=== PATIENT | male | born 1940 | race Caucasian/White ===

== ENCOUNTER 2017-12-22 07:55 | Emergency (ER) | payer MEDICARE, MEDICAID ==
[2017-12-22 08:00] VITALS: BP 149/72
--- NOTE | 2017-12-22 08:30 | ER Document Report ---
ED General - General Chief Complaint: Urinary Problem Stated Complaint: BLOOD IN URINE Time Seen by Provider: 12/22/17 08:29 Mode of Arrival: Ambulatory Information source: Patient TRAVEL OUTSIDE OF THE [place] IN LAST 30 DAYS: No - HPI Notes: 77-year-old male with a history of bladder cancer and who is in remission 2 years ago presents to the ED with for complaints of hematuria that he noticed this morning. Denies any other complaints. Patient was cared for by Dr. Carrasquillo in [place] with a urologist. He states he had debulking done, he had multiple biopsies and the last one showing is cancer free, patient has a cystoscopy performed every 3 months for evaluation of bladder cancer. Patient did miss his appointment back in October, has an appointment in mid December for another cystoscopy, his last one was July 2017 which was normal per patient. Denies fevers, chills, chest pain,palpitations, shortness of breath, dyspnea, nausea, vomiting, diarrhea, abdominal pain, hematuria,blurred vision, double vision, loss of vision, speech changes, LH, dizziness, syncope, headaches, wheezing, ST, URI, neck pain, weakness, bowel or bladder dysfunction, saddle anesthesia, numbness or tingling in bilateral upper or lower extremities equally , muscle paralysis, weakness in bilateral upper or lower extremities equally or rash. Denies IV drug use. - Related Data Allergies/Adverse Reactions: No Known Allergies Allergy (Verified 12/22/17 07:55) Past Medical History - General Information source: Patient - Social History Smoking Status: Never Smoker Chew tobacco use (# tins/day): No Frequency of alcohol use: None Drug Abuse: None Family History: Reviewed & Not Pertinent, Malignancy Patient has suicidal ideation: No Patient has homicidal ideation: No - Past Medical History Cardiac Medical History: Denies: Hx Coronary Artery Disease, Hx Heart Attack, Hx Hypertension Pulmonary Medical History: Denies: Hx Asthma, Hx Bronchitis, Hx COPD, Hx Pneumonia Neurological Medical History: Denies: Hx Cerebrovascular Accident, Hx Seizures Renal/ Medical History: Denies: Hx Peritoneal Dialysis Musculoskeletal Medical History: Reports Hx Arthritis - shoulder, low back, Reports Hx Musculoskeletal Deformity, Reports Hx Musculoskeletal Trauma Skin Medical History: Reports Hx Psoriasis Psychiatric Medical History: Reports: Hx Depression Past Surgical History: Reports: Hx Cholecystectomy - Immunizations Immunizations up to date: No Hx Diphtheria, Pertussis, Tetanus Vaccination: Yes Review of Systems - Review of Systems Constitutional: No symptoms reported EENT: No symptoms reported Cardiovascular: No symptoms reported Respiratory: No symptoms reported Gastrointestinal: No symptoms reported Genitourinary: See HPI Male Genitourinary: No symptoms reported Musculoskeletal: No symptoms reported Skin: No symptoms reported Hematologic/Lymphatic: No symptoms reported Neurological/Psychological: No symptoms reported Physical Exam - Vital signs Vitals: Temp Pulse Resp BP Pulse Ox 98.5 F 63 18 149/72 H 98 12/22/17 07:59 12/22/17 07:59 12/22/17 07:59 12/22/17 07:59 12/22/17 07:59 - Notes Notes: PHYSICAL EXAMINATION: GENERAL: Well-appearing, well-nourished and in no acute distress. HEAD: Atraumatic, normocephalic. EYES: Pupils equal round and reactive to light, extraocular movements intact, sclera anicteric, conjunctiva are normal. ENT: Nares patent, oropharynx clear without exudates. Moist mucous membranes. NECK: Normal range of motion, supple without lymphadenopathy LUNGS: Breath sounds clear to auscultation bilaterally and equal. No wheezes rales or rhonchi. HEART: Regular rate and rhythm without murmurs ABDOMEN: Soft, nontender, nondistended abdomen. No guarding, no rebound. No masses appreciated. Musculoskeletal: Normal range of motion, no pitting or edema. No cyanosis. NEUROLOGICAL: Cranial nerves grossly intact. Normal speech, normal gait. Normal sensory, motor exams PSYCH: Normal mood, normal affect. SKIN: Warm, Dry, normal turgor, no rashes or lesions noted. Course - Re-evaluation Re-evalutation: 12/22/17 11:25 77-year-old male who is afebrile, vitals stable and in no distress presents for evaluation of hematuria. Urinalysis did show hematuria, no leukocytes or nitrates. Retroperitoneal limited ultrasound of the bladder was negative for any masses, left and right kidney without any solid or suspicious masses, no hydronephrosis or calcifications, normal size normal. Reevaluation, patient urinating bedside urinal, urine appeared to be yellow, no sergey hematuria. Patient remained afebrile, vitals stable no distress. After performing a Medical Screening Examination, I estimate there is LOW risk for ACUTE APPENDICITIS, BOWEL OBSTRUCTION, ACUTE CHOLECYSTITIS, PERFORATED DIVERTICULITIS , INCARCERATED HERNIA, PANCREATITIS, TESTICULAR TORSION or PERFORATED ULCER, thus I consider the discharge disposition reasonable. Also, there is no evidence or peritonitis, sepsis, or toxicity. I have reevaluated this patient multiple times and no significant life threatening changes are noted. The patient and I have discussed the diagnosis and risks, and we agree with discharging home with close follow-up with the understanding that symptoms and presentations can change. Discussed with patient to follow-up with Dr. Carrasquillo , urologist in [place] who manages bladder cancer for a cystoscopy sooner than mid December. We also discussed returning to the Emergency Department immediately if new or worsening symptoms occur. We have discussed the symptoms which are most concerning (e.g., bloody stool, fever, nausea vomiting diarrhea changing or worsening pain, intractable vomiting - standard verbal up date) that necessitate immediate return. Patient agree with plan of care, verbalized understanding of plan and was discharged home. - Vital Signs Vital signs: Temp Pulse Resp BP Pulse Ox 98.5 F 63 18 149/72 H 98 12/22/17 07:59 12/22/17 07:59 12/22/17 07:59 12/22/17 07:59 12/22/17 07:59 - Laboratory Laboratory results interpreted by me: 12/22/17 09:42 Urine Protein 30 H Urine Blood LARGE H Discharge - Discharge Clinical Impression: Hematuria, Hematuria, resolved, History of bladder cancer Condition: Stable Disposition: HOME, SELF-CARE Instructions: Hematuria ([facility]) Additional Instructions: Reevaluation of hematuria although it has resolved. Your ultrasound was negative for any stones or masses. He likely may have passed a stone since her hematuria has resolved. Urinalysis did not show a UTI. Return to the ED if you experience any fevers chills, abdominal pain, worsening hematuria, coffee- ground emesis, melena, etc. Return immediately for any new or worsening symptoms. Follow up with primary care provider, call tomorrow to make followup appointment. Referrals: AMAYA CHAVEZ MD [Primary Care Provider] - Follow up as needed JAMAAL CARRASQUILLO MD [NO LOCAL MD] - Follow up in 3-5 days
[2017-12-22 10:11] LABS: APPEARANCE,URINE CLOUDY; BILIRUBIN,URINE NEGATIVE (NEGATIVE); GLUCOSE, URINE NEGATIVE (NEGATIVE); KETONES,URINE NEGATIVE (NEGATIVE); LEUKOCYTE ESTERASE,URINE NEGATIVE (NEGATIVE); NITRITE,URINE NEGATIVE (NEGATIVE); PROTEIN,URINE 30 mg/dL (NEGATIVE); URINE SPECIFIC GRAVITY 1.017; UROBILINOGEN,URINE NEGATIVE mg/dL (<2.0)
[2017-12-22 10:12] LABS: COLOR,URINE PINK
--- NOTE | 2017-12-22 10:50 | RADIOLOGY REPORT (SQ) ---
EXAM DESCRIPTION: U/S RETROPERITON LTD COMPLETED DATE/TIME: 12/22/2017 10:35 am REASON FOR STUDY: hematuria with hx of bladder ca, sudden onset COMPARISON: None. TECHNIQUE: Dynamic and static grayscale images acquired of the kidneys and bladder and recorded on P ACS. Additional selected color Doppler and spectral images recorded. LIMITATIONS: None. FINDINGS: RIGHT KIDNEY: Normal size. Normal echogenicity. No solid or suspicious masses. No h ydronephrosis. No calcifications. LEFT KIDNEY: Normal size. Normal echogenicity. No solid or suspicious masses. No hydronephrosi s. No calcifications. BLADDER: No masses. OTHER FINDINGS: No other significant finding. IMPRESSION: NORMAL RENAL AND BLADDER ULTRASOUND. TECHNICAL DOCUMENTATION: JOB ID: [id number] [employer]- All Rights Reserved Reading location - IP/workstation name: [email or web address]
== END 2017-12-22 11:49 | disposition home or self-care (01) ==
LOC: ER 07:55
DX: R31.9 Hematuria, unspecified (principal); Z85.51 Personal history of malignant neoplasm of bladder; Z90.49 Acquired absence of other specified parts of digestive tract
CPT/HCPCS: 76775; 81001; 87086; 99284

== ENCOUNTER 2018-07-21 05:16 | Emergency (ER) | payer MEDICARE, MEDICAID ==
[2018-07-21] MEDS ORDERED: LIDOCAINE 2% URO-JET 5 ML KIT MM ONE (05:39)
[2018-07-21 06:43] LABS: APPEARANCE,URINE TURBID; BILIRUBIN,URINE NEGATIVE (NEGATIVE); COLOR,URINE RED; GLUCOSE, URINE 50 mg/dL (NEGATIVE); KETONES,URINE NEGATIVE (NEGATIVE); LEUKOCYTE ESTERASE,URINE NEGATIVE (NEGATIVE); NITRITE,URINE NEGATIVE (NEGATIVE); PROTEIN,URINE 100 mg/dL (NEGATIVE); URINE SPECIFIC GRAVITY 1.023; UROBILINOGEN,URINE NEGATIVE mg/dL (<2.0)
--- NOTE | 2018-07-21 07:05 | ER Document Report ---
ED General - General Chief Complaint: Urinary Retention Stated Complaint: URINATION ISSUES Time Seen by Provider: 07/21/18 06:12 Primary Care Provider: AMAYA CHAVEZ MD [Primary Care Provider] - Follow up as needed TRAVEL OUTSIDE OF THE U.S. IN LAST 30 DAYS: No - HPI Patient complains to provider of: Urinary retention Notes: Patient coming in for evaluation of urinary retention. Patient had a tumor removed from his bladder by Dr. Chun at [facility] Thursday prior to his arrival here. Patient states tolerated surgery well. Patient states approximately 2:00 last night woke up suprapubic abdominal pain unable to urinate. Patient denies any blood thinning medications. Patient denies any fevers chills nausea vomiting diarrhea. Patient upon my evaluation is Jerry had a Thao catheter placed in with bloody urine returned approximately 800 cc at this time. Patient states he is feeling much better and is no longer in any distress. Denies any fevers. Patient states that he has had multiple tumors removed from his bladder this is the first time this caused urinary retention. - Related Data Allergies/Adverse Reactions: No Known Allergies Allergy (Verified 12/22/17 07:55) Past Medical History - Social History Smoking Status: Unknown if Ever Smoked Chew tobacco use (# tins/day): No Drug Abuse: None Family History: Reviewed & Not Pertinent, Malignancy Patient has suicidal ideation: No Patient has homicidal ideation: No - Past Medical History Cardiac Medical History: Denies: Hx Coronary Artery Disease, Hx Heart Attack, Hx Hypertension Pulmonary Medical History: Denies: Hx Asthma, Hx Bronchitis, Hx COPD, Hx Pneumonia Neurological Medical History: Denies: Hx Cerebrovascular Accident, Hx Seizures Renal/ Medical History: Denies: Hx Peritoneal Dialysis Musculoskeletal Medical History: Reports Hx Arthritis - shoulder, low back, Reports Hx Musculoskeletal Deformity, Reports Hx Musculoskeletal Trauma Skin Medical History: Reports Hx Psoriasis Psychiatric Medical History: Reports: Hx Depression Past Surgical History: Reports: Hx Cholecystectomy - Immunizations Immunizations up to date: No Hx Diphtheria, Pertussis, Tetanus Vaccination: Yes Review of Systems - Review of Systems Constitutional: No symptoms reported EENT: No symptoms reported Cardiovascular: No symptoms reported Respiratory: No symptoms reported Gastrointestinal: No symptoms reported Genitourinary: Retention Male Genitourinary: No symptoms reported Musculoskeletal: No symptoms reported Skin: No symptoms reported Hematologic/Lymphatic: No symptoms reported Neurological/Psychological: No symptoms reported -: Yes All other systems reviewed and negative Physical Exam - Vital signs Vitals: Pulse Resp Pulse Ox 104 H 28 H 100 07/21/18 05:16 07/21/18 05:16 07/21/18 05:16 Interpretation: Normal - General General appearance: Appears well, Alert - HEENT Head: Normocephalic, Atraumatic Eyes: Normal Pupils: PERRL - Respiratory Respiratory status: No respiratory distress Chest status: Nontender Breath sounds: Normal Chest palpation: Normal - Cardiovascular Rhythm: Regular Heart sounds: Normal auscultation Murmur: No - Abdominal Inspection: Normal Distension: No distension Bowel sounds: Normal Tenderness: Nontender Organomegaly: No organomegaly - Back Back: Normal, Nontender - Extremities General upper extremity: Normal inspection, Nontender, Normal color, Normal ROM, Normal temperature General lower extremity: Normal inspection, Nontender, Normal color, Normal ROM, Normal temperature, Normal weight bearing. No: Freedom's sign - Neurological Neuro grossly intact: Yes Cognition: Normal Orientation: AAOx4 Blair Coma Scale Eye Opening: Spontaneous Blair Coma Scale Verbal: Oriented [place] Coma Scale Motor: Obeys Commands [place] Coma Scale Total: 15 Speech: Normal Motor strength normal: LUE, RUE, LLE, RLE Sensory: Normal - Psychological Associated symptoms: Normal affect, Normal mood - Skin Skin Temperature: Warm Skin Moisture: Dry Skin Color: Normal Course - Re-evaluation Re-evalutation: 07/21/18 07:05 We will contact the patient's urologist 07/21/18 07:[address] Hui urology on-call at [facility]. Agrees at this time with Thao catheter changes and to have her to a leg bag because the bacteria seen in the urinalysis and recent instrumentation of the bladder we will start the patient on Keflex. Patient's urology clinic for follow-up with him later on for removal of the Thao catheter. Patient will be discharged home - Vital Signs Vital signs: Temp Pulse Resp BP Pulse Ox 104 H 28 H 100 07/21/18 05:16 07/21/18 05:16 07/21/18 05:16 - Laboratory Laboratory results interpreted by me: 07/21/18 06:10 Urine Protein 100 H Urine Glucose (UA) 50 H Urine Blood MODERATE H Discharge - Discharge Clinical Impression: Urinary retention Condition: Good Disposition: HOME, SELF-CARE Instructions: Thao Catheter Care ([facility]), Urinary Retention ([facility]) Additional Instructions: We will start you on antibiotic today called Keflex because of bacteria that we see in your urinalysis. Please follow-up with the urology clinic. They will schedule a time for you to come to your office our clinic to have the catheter removed. Return to ER if you have any other complications. Prescriptions: Cephalexin Monohydrate [Keflex 500 mg Capsule] 500 mg PO Q6H 10 Days capsule Referrals: AMAYA CHAVEZ MD [Primary Care Provider] - Follow up as needed
[2018-07-21] MEDS ORDERED: CEPHALEXIN 500 MG CAPSULE PO ONE (07:33)
[2018-07-21 08:02] VITALS: BP 123/62
== END 2018-07-21 08:02 | disposition home or self-care (01) ==
LOC: ER 05:16
DX: R33.9 Retention of urine, unspecified (principal); R82.71 Bacteriuria; Z98.890 Other specified postprocedural states
CPT/HCPCS: 99283; 51702; 81001; C1758; A9270 ×2; J3490

== ENCOUNTER 2018-07-21 11:03 | Emergency (ER) | payer MEDICARE, MEDICAID ==
--- NOTE | 2018-07-21 12:11 | ER Document Report ---
ED General - General Chief Complaint: Problem with Urinary Catheter Stated Complaint: CATHETER NOT DRAINING Time Seen by Provider: 07/21/18 11:35 Primary Care Provider: AMAYA CHAVEZ MD [Primary Care Provider] - Follow up as needed Notes: 77-year-old male seen here this morning for obstruction of his Thao catheter re-presents in acute distress for re-evaluation of urinary retention. Patient had a tumor removed from his bladder by Dr. Chun at [facility] Thursday prior to his arrival here. Patient states approximately 2:00 last night woke up suprapubic abdominal pain unable to urinate. Patient denies any anti coagulation. Patient denies any fevers, chills, nausea, vomiting, diarrhea. Patient seen this morning by Dr. Berkowitz and Thao was flushed. TRAVEL OUTSIDE OF THE [place]. IN LAST 30 DAYS: No - Related Data Allergies/Adverse Reactions: No Known Allergies Allergy (Verified 07/21/18 11:03) Past Medical History - Social History Smoking Status: Former Smoker Family History: Reviewed & Not Pertinent, Malignancy Patient has suicidal ideation: No Patient has homicidal ideation: No - Past Medical History Cardiac Medical History: Denies: Hx Coronary Artery Disease, Hx Heart Attack, Hx Hypertension Pulmonary Medical History: Denies: Hx Asthma, Hx Bronchitis, Hx COPD, Hx Pneumonia Neurological Medical History: Denies: Hx Cerebrovascular Accident, Hx Seizures Renal/ Medical History: Denies: Hx Peritoneal Dialysis Musculoskeletal Medical History: Reports Hx Arthritis - shoulder, low back, Reports Hx Musculoskeletal Deformity, Reports Hx Musculoskeletal Trauma Skin Medical History: Reports Hx Psoriasis Psychiatric Medical History: Reports: Hx Depression Past Surgical History: Reports: Hx Cholecystectomy - Immunizations Immunizations up to date: No Hx Diphtheria, Pertussis, Tetanus Vaccination: Yes Review of Systems - Review of Systems Constitutional: See HPI EENT: No symptoms reported Cardiovascular: No symptoms reported Respiratory: See HPI Gastrointestinal: See HPI Genitourinary: See HPI Male Genitourinary: No symptoms reported Musculoskeletal: No symptoms reported Skin: No symptoms reported Hematologic/Lymphatic: No symptoms reported Neurological/Psychological: No symptoms reported Physical Exam - Vital signs Vitals: Temp Pulse Resp BP Pulse Ox 98.6 F 102 H 20 168/90 H 100 07/21/18 11:07 07/21/18 11:07 07/21/18 11:07 07/21/18 11:07 07/21/18 11:07 - Notes Notes: PHYSICAL EXAMINATION: Reviewed vital signs and charting by RN GENERAL: Alert, interacts well. Acute distress. HEAD: Normocephalic, atraumatic. EYES: Pupils equal, round. Extraocular movements intact. ENT: Oral mucosa moist ABDOMEN: Soft, suprapubic tenderness to palpation. Non-distended. EXTREMITIES: Moves all 4 extremities spontaneously. No edema, No cyanosis. NEUROLOGICAL: Alert and oriented. Normal speech. PSYCH: Normal affect, anxious, normal mood. SKIN: Warm, dry, normal turgor. No rashes or lesions noted. Course - Re-evaluation Re-evalutation: 07/21/18 12:07 Patient 3presents for acute urinary retention secondary to clot at the port entering the Thao catheter bag. Nursing care performed to correct Thao malfunction and education was given to patient on how to manage his Thao bag. No medical interventions were performed. Do not feel the patient should be billed a second visit for this. - Vital Signs Vital signs: Temp Pulse Resp BP Pulse Ox 98.6 F 102 H 20 168/90 H 100 07/21/18 11:07 07/21/18 11:07 07/21/18 11:07 07/21/18 11:07 07/21/18 11:07 Discharge - Discharge Clinical Impression: Urinary retention Condition: Good Disposition: HOME, SELF-CARE Additional Instructions: You are seen again in the emergency department for urinary retention. Nursing has given you education and instructions how to manage her Thao in case this happens again. Please attempt these maneuvers prior to coming into the emergency department as it could prevent pain and distress. If you do perform these maneuvers and you are having problems with urinary retention, continue to have blood in your urine in the next 2-3 days, or you have any other concerning symptoms please immediately return to the emergency department. If you have any fevers please return to the emergency department. Referrals: AMAYA CHAVEZ MD [Primary Care Provider] - Follow up as needed
[2018-07-21 12:57] VITALS: BP 159/76
== END 2018-07-21 13:14 | disposition home or self-care (01) ==
LOC: ER 11:03
DX: T83.018A Breakdown (mechanical) of other urinary catheter, initial encounter (principal); R33.8 Other retention of urine; Y84.6 Urinary catheterization as the cause of abnormal reaction of the patient, or of later complication, without mention of misadventure at the time of the procedure; Z98.890 Other specified postprocedural states; Z87.891 Personal history of nicotine dependence
CPT/HCPCS: 99283

== ENCOUNTER 2018-07-22 05:02 | Emergency (ER) | payer MEDICARE, MEDICAID ==
[2018-07-22 06:18] LABS: HEMOGLOBIN 13.2 g/dL (13.5-17.0); MEAN CORPUSCULAR HEMOGLOBIN 30.6 pg (27.0-33.4); MEAN CORPUSCULAR HGB CONC 34.7 g/dL (32.0-36.0); MEAN CORPUSCULAR VOLUME 88 fl (80-97); PLATELET COUNT 104 10^3/uL (150-450); RED CELL DISTRIBUTION WIDTH 13.5 % (11.5-14.0); WHITE BLOOD COUNT 5.9 10^3/uL (4.0-10.5)
[2018-07-22 06:51] LABS: ABSOLUTE LYMPHOCYTES# (MANUAL) 0.2 10^3/uL (0.5-4.7); ABSOLUTE MONOCYTES # (MANUAL) 0.1 10^3/uL (0.1-1.4); ABSOLUTE NEUTROPHILS# (MANUAL) 5.6 10^3/uL (1.7-8.2); BAND NEUTROPHILS % (MANUAL) 3 % (3-5); BASOPHILS % (MANUAL) 0 % (0-2); EOSINOPHILS % (MANUAL) 0 % (0-6); LYMPHOCYTES % (MANUAL) 3 % (13-45); MONOCYTES % (MANUAL) 2 % (3-13); SEGMENTED NEUTROPHILS % (MAN) 92 % (42-78); TOTAL CELLS COUNTED 100
[2018-07-22 06:52] LABS: PLATELET COMMENT ADEQUATE; ROULEAUX 1+
[2018-07-22 06:53] LABS: HYPOCHROMASIA 1+
[2018-07-22 07:54] LABS: ANION GAP 10 (5-19); BLOOD UREA NITROGEN 14 mg/dL (7-20); CARBON DIOXIDE 24 mmol/L (22-30); CHLORIDE 105 mmol/L (98-107); GLUCOSE 122 mg/dL (75-110); POTASSIUM 3.6 mmol/L (3.6-5.0); SODIUM 139.4 mmol/L (137-145)
--- NOTE | 2018-07-22 08:27 | ER Document Report ---
ED General - General Chief Complaint: Problem with Urinary Catheter Stated Complaint: URINARY PROBLEMS Time Seen by Provider: 07/22/18 05:41 Primary Care Provider: AMAYA CHAVEZ MD [Primary Care Provider] - Follow up as needed TRAVEL OUTSIDE OF THE [place] IN LAST 30 DAYS: No - HPI Patient complains to provider of: Thao catheter pain Notes: Patient coming in for pain due to Thao catheter. Patient was seen yesterday by myself urinary retention Thao catheter was placed in patient is to follow-up with his urologist. Patient came in prior to my shift starting complaining of Thao catheter playing the Thao catheter was removed upon my evaluation patient states he has already voided currently is pain-free. Patient denies any fever chills nausea vomiting diarrhea. Basic chemistry panel have been ordered by the nighttime doctor to check for any signs of renal failure due to obstructive uropathy - Related Data Allergies/Adverse Reactions: No Known Allergies Allergy (Verified 07/21/18 11:03) Past Medical History - Social History Smoking Status: Unknown if Ever Smoked Family History: Reviewed & Not Pertinent, Malignancy Patient has suicidal ideation: No Patient has homicidal ideation: No - Past Medical History Cardiac Medical History: Denies: Hx Coronary Artery Disease, Hx Heart Attack, Hx Hypertension Pulmonary Medical History: Denies: Hx Asthma, Hx Bronchitis, Hx COPD, Hx Pneumonia Neurological Medical History: Denies: Hx Cerebrovascular Accident, Hx Seizures Renal/ Medical History: Denies: Hx Peritoneal Dialysis Musculoskeletal Medical History: Reports Hx Arthritis - shoulder, low back, Reports Hx Musculoskeletal Deformity, Reports Hx Musculoskeletal Trauma Skin Medical History: Reports Hx Psoriasis Psychiatric Medical History: Reports: Hx Depression Past Surgical History: Reports: Hx Cholecystectomy - Immunizations Immunizations up to date: No Hx Diphtheria, Pertussis, Tetanus Vaccination: Yes Review of Systems - Review of Systems Constitutional: Other - Thao catheter. EENT: No symptoms reported Cardiovascular: No symptoms reported Respiratory: No symptoms reported Gastrointestinal: No symptoms reported Genitourinary: No symptoms reported Male Genitourinary: No symptoms reported Musculoskeletal: No symptoms reported Skin: No symptoms reported Hematologic/Lymphatic: No symptoms reported Neurological/Psychological: No symptoms reported -: Yes All other systems reviewed and negative Physical Exam - Vital signs Vitals: Pulse Resp BP Pulse Ox 88 26 H 183/80 H 96 07/22/18 05:07 07/22/18 05:07 07/22/18 05:07 07/22/18 05:07 Interpretation: Normal - General General appearance: Appears well, Alert - HEENT Head: Normocephalic, Atraumatic Eyes: Normal Pupils: PERRL - Respiratory Respiratory status: No respiratory distress Chest status: Nontender Breath sounds: Normal Chest palpation: Normal - Cardiovascular Rhythm: Regular Heart sounds: Normal auscultation Murmur: No - Abdominal Inspection: Normal Distension: No distension Bowel sounds: Normal Tenderness: Nontender Organomegaly: No organomegaly - Back Back: Normal, Nontender - Extremities General upper extremity: Normal inspection, Nontender, Normal color, Normal ROM, Normal temperature General lower extremity: Normal inspection, Nontender, Normal color, Normal ROM, Normal temperature, Normal weight bearing. No: Freedom's sign - Neurological Neuro grossly intact: Yes Cognition: Normal Orientation: AAOx4 [place] Coma Scale Eye Opening: Spontaneous Blair Coma Scale Verbal: Oriented Blair Coma Scale Motor: Obeys Commands [place] Coma Scale Total: 15 Speech: Normal Motor strength normal: LUE, RUE, LLE, RLE Sensory: Normal - Psychological Associated symptoms: Normal affect, Normal mood - Skin Skin Temperature: Warm Skin Moisture: Dry Skin Color: Normal Course - Re-evaluation Re-evalutation: 07/22/18 13:24 Patient continue to void here without any issues. Patient will be discharged h ome follow-up primary care physician laboratory studies not show any signs of renal failure. - Vital Signs Vital signs: Temp Pulse Resp BP Pulse Ox 98.1 F 78 17 156/77 H 100 07/22/18 06:00 07/22/18 08:49 07/22/18 08:49 07/22/18 08:49 07/22/18 08:49 - Laboratory Result Diagrams: 07/22/18 06:00 07/22/18 07:18 Laboratory results interpreted by me: 07/22/18 07/22/18 06:00 07:18 RBC 4.30 L Hgb 13.2 L Plt Count 104 L Seg Neuts % (Manual) 92 H Lymphocytes % (Manual) 3 L Monocytes % (Manual) 2 L Abs Lymphs (Manual) 0.2 L Glucose 122 H Discharge - Discharge Clinical Impression: History of recent bladder surgery, Encounter for Thao catheter removal Condition: Good Disposition: HOME, SELF-CARE Additional Instructions: Laboratory studies did not show any acute pathology highly recommend drinking plenty of fluids stay well-hydrated follow-up with your urologist and primary c are physician as needed. Referrals: AMAYA CHAVEZ MD [Primary Care Provider] - Follow up as needed
[2018-07-22 08:52] VITALS: BP 156/77
== END 2018-07-22 08:49 | disposition home or self-care (01) ==
LOC: ER 05:02
DX: Z46.89 Encounter for fitting and adjustment of other specified devices (principal); T83.9XXA Unspecified complication of genitourinary prosthetic device, implant and graft, initial encounter; X58.XXXA Exposure to other specified factors, initial encounter
CPT/HCPCS: 36415; 80048; 85025; 99283

== ENCOUNTER → 2018-11-17 | Outpatient (CLI) | payer MEDICARE, MEDICAID ==
--- NOTE | 2018-11-17 10:52 | RADIOLOGY REPORT (SQ) ---
EXAM DESCRIPTION: U/S ABDOMEN LIMITED W/O DOP COMPLETED DATE/TIME: 11/17/2018 9:11 am REASON FOR STUDY: ABNORMAL WEIGHT LOSS R63.4 ABNORMAL WEIGHT LOSS COMPARISON: None. TECHNIQUE: Dynamic and static grayscale images acquired of the abdomen and recorded on PACS. Additio nal selected color Doppler and spectral images recorded. LIMITATIONS: None. FINDINGS: PANCREAS: Not seen. LIVER: No masses. Echotexture normal. LIVER VASCULATURE: Normal directional flow of the main portal vein and hepatic veins. GALLBLADDER: Surgically absent. ULTRASOUND-DETECTED BOUDREAUX'S SIGN: Not applicable. INTRAHEPATIC DUCTS AND COMMON DUCT: CBD and intrahepatic ducts normal caliber. No filling defects. INFERIOR VENA CAVA: Not imaged. AORTA: No aneurysm. RIGHT KIDNEY: Normal size, 12.6 cm. Normal echogenicity. No solid or suspicious masses. No hydroneph rosis. No calcifications. PERITONEAL AND RIGHT PLEURAL SPACE: No ascites or effusions. OTHER: No other significant findings. IMPRESSION: NORMAL RIGHT UPPER QUADRANT ULTRASOUND. TECHNICAL DOCUMENTATION: JOB ID: [id number] [employer]- All Rights Reserved Reading location - IP/workstation name: [email or web address]
== END ==
LOC: RAD 08:40
PROVIDERS: ATTEND Internal Medicine Gastroenterology
DX: R63.4 Abnormal weight loss (principal); C67.9 Malignant neoplasm of bladder, unspecified; F19.10 Other psychoactive substance abuse, uncomplicated
CPT/HCPCS: 76705

== ENCOUNTER 2019-01-06 17:59 | Emergency (ER) | payer MEDICARE, MEDICAID ==
--- NOTE | 2019-01-06 18:33 | ER Document Report ---
ED Medical Screen (RME) - General Chief Complaint: Urinary Problem Stated Complaint: URINARY SYMPTOMS Time Seen by Provider: 01/06/19 18:26 Primary Care Provider: AMAYA CHAVEZ MD [Primary Care Provider] - Follow up as needed Mode of Arrival: Ambulatory Information source: Patient Notes: 78-year-old male presented to ED for complaint of urinary retention. He states he has had a few drops of urine since this morning. He states he had to have catheter placed multiple times over the last several weeks. He states that 2 weeks ago he had the last week he was able to pass a large clot and then did not need to catheter. He states he has a urologist in [place] and his next appointment is not for couple months. I have informed him he needs to go to the urologist not in a couple months. Thao catheter was ordered to be inserted. IR garfield I have greeted and performed a rapid initial assessment of this patient. A comprehensive ED assessment and evaluation of the patient, analysis of test results and completion of medical decision making process will be conducted by an additional ED providers. Dictation of this chart was performed using voice recognition software; therefore, there may be some unintended grammatical errors. TRAVEL OUTSIDE OF THE [place] IN LAST 30 DAYS: No - Related Data Allergies/Adverse Reactions: No Known Allergies Allergy (Verified 01/06/19 18:00) Past Medical History - Social History Family history: None - Past Medical History Cardiac Medical History: Denies: Hx Coronary Artery Disease, Hx Heart Attack, Hx Hypertension Pulmonary Medical History: Denies: Hx Asthma, Hx Bronchitis, Hx COPD, Hx Pneumonia Neurological Medical History: Denies: Hx Cerebrovascular Accident, Hx Seizures Renal/ Medical History: Denies: Hx Peritoneal Dialysis Musculoskeltal Medical History: Reports Hx Arthritis - shoulder, low back, Reports Hx Musculoskeletal Deformity, Reports Hx Musculoskeletal Trauma Skin Medical History: Reports Hx Psoriasis Psychiatric Medical History: Reports: Hx Depression Past Surgical History: Reports: Hx Cholecystectomy - Immunizations Immunizations up to date: No Hx Diphtheria, Pertussis, Tetanus Vaccination: Yes Physical Exam - Vital signs Vitals: Temp Pulse Resp BP Pulse Ox 98.1 F 84 18 131/56 H 97 01/06/19 18:04 01/06/19 18:04 01/06/19 18:04 01/06/19 18:04 01/06/19 18:04 Course - Vital Signs Vital signs: Temp Pulse Resp BP Pulse Ox 98.1 F 84 18 131/56 H 97 01/06/19 18:04 01/06/19 18:04 01/06/19 18:04 01/06/19 18:04 01/06/19 18:04 Doctor's Discharge - Discharge Referrals: AMAYA CHAVEZ MD [Primary Care Provider] - Follow up as needed
[2019-01-06] MEDS ORDERED: HYDROMORPHONE HCL INJ/PF 2 MG/ML AMPULE IV ONE (20:34)
[2019-01-06] MEDS ORDERED: ONDANSETRON HCL INJ/PF 4 MG/2 ML SDV IV ONE (20:34)
--- NOTE | 2019-01-06 20:35 | ER Document Report ---
ED GI/ - General Chief Complaint: Urinary Problem Stated Complaint: URINARY SYMPTOMS Time Seen by Provider: 01/06/19 18:26 Primary Care Provider: AMAYA CHAVEZ MD [Primary Care Provider] - Follow up as needed Mode of Arrival: Ambulatory Notes: Patient is a 78-year-old male that comes the emergency department for chief complaint of urinary retention. He has had Thao's placed and removed several times recently, sometimes he can pass a clot and urinate but today he could not. Reportedly patient follows up with urologist Dr. 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 He had pain in his lower abdomen but he denies fever/chills, nausea/vomiting. He has not urinated since this morning, he had a Thao catheter placed after triage, he reports soreness to the penis area but denies complaints otherwise. He is not on a blood thinner. TRAVEL OUTSIDE OF THE [place] IN LAST 30 DAYS: No - Related Data Allergies/Adverse Reactions: No Known Allergies Allergy (Verified 01/06/19 18:00) Past Medical History - General Information source: Patient - Social History Smoking Status: Never Smoker Frequency of alcohol use: None Drug Abuse: None Lives with: Alone Family History: Reviewed & Not Pertinent, Malignancy Patient has suicidal ideation: No Patient has homicidal ideation: No - Past Medical History Cardiac Medical History: Denies: Hx Coronary Artery Disease, Hx Heart Attack, Hx Hypertension Pulmonary Medical History: Denies: Hx Asthma, Hx Bronchitis, Hx COPD, Hx Pneumonia Neurological Medical History: Denies: Hx Cerebrovascular Accident, Hx Seizures Renal/ Medical History: Denies: Hx Peritoneal Dialysis Musculoskeletal Medical History: Reports Hx Arthritis - shoulder, low back, Reports Hx Musculoskeletal Deformity, Reports Hx Musculoskeletal Trauma Skin Medical History: Reports Hx Psoriasis Psychiatric Medical History: Reports: Hx Depression Past Surgical History: Reports: Hx Cholecystectomy - Immunizations Immunizations up to date: No Hx Diphtheria, Pertussis, Tetanus Vaccination: Yes Review of Systems - Review of Systems Constitutional: No symptoms reported EENT: No symptoms reported Cardiovascular: No symptoms reported Respiratory: No symptoms reported Gastrointestinal: See HPI Genitourinary: See HPI Male Genitourinary: No symptoms reported Musculoskeletal: No symptoms reported Skin: No symptoms reported Hematologic/Lymphatic: No symptoms reported Neurological/Psychological: No symptoms reported Physical Exam - Vital signs Vitals: Temp Pulse Resp BP Pulse Ox 98.1 F 84 18 131/56 H 97 01/06/19 18:04 01/06/19 18:04 01/06/19 18:04 01/06/19 18:04 01/06/19 18:04 - Notes Notes: GENERAL: Alert, interacts well. No acute distress. HEAD: Normocephalic, atraumatic. EYES: Pupils equal, round, and reactive to light. Extraocular movements intact. ENT: Oral mucosa moist, tongue midline. Oropharynx unremarkable. Airway patent. LUNGS: Clear to auscultation bilaterally, no wheezes, rales, or rhonchi. No r espiratory distress. HEART: Regular rate and rhythm. No murmur ABDOMEN: Soft, non-tender. Non-distended. Bowel sounds present in all 4 quadrants. GENITOURINARY: Thao in place, otherwise unremarkable. EXTREMITIES: Moves all 4 extremities spontaneously. No edema, normal radial and dorsalis pedis pulses bilaterally. No cyanosis. BACK: no cervical, thoracic, lumbar midline tenderness. No saddle anesthesia, normal distal neurovascular exam. Moves all extremities in full range of motion. NEUROLOGICAL: Alert and oriented x3. Normal speech. Cranial nerves II through XII grossly intact. PSYCH: Normal affect, normal mood. SKIN: Warm, dry, normal turgor. No rashes or lesions noted. Course - Re-evaluation Re-evalutation: Patient has mixed urine and blood noted flowing through the catheter on my evaluation, catheter was inserted because of his urinary retention, he is reporting soreness to the area but he feels much better. His abdomen is benign. His vital signs are unremarkable. Labs added to rule out postobstructive uropathy/renal failure and concerning anemia. Unfortunately patient's hemoglobin is 6.8, significantly down trended from prior. Patient does admit that when he stands and walks he will start getting lightheaded and some shortness of breath. He denies shortness of breath at rest, chest pain, or any other complaints at this time. I did discuss with Dr. Yates. Patient will be transfused 2 units of packed red blood cells, if his hemoglobin significantly improves the recommendation will be for him to follow-up with urology closely in the office for additional management and he will keep his catheter in place. I did discuss this with patient. He states agreement with plan. I did advise him if his hemoglobin is not improving or he bleeds heavily (or worsens in anyway) he is I will contact his urologist and potentially transfer him. He states understanding. Patient reevaluated, no decompensation during his stay. Hemoglobin actually did significantly uptrend to 9.1. He does have intermittent bleeding through the Thao. Discussed with patient, he is very happy to be discharged. However now despite recommendations he is demanding that we remove the Thao catheter. I explained that he will most likely clot and to have obstruction again, he states he understands the risks, states he will try to drink lots of water and urinate frequently, states that he will follow close with urology and return if he worsens. I still advised against this but patient is insistent. - Vital Signs Vital signs: Temp Pulse Resp BP Pulse Ox 98.1 F 65 14 111/60 98 01/07/19 06:59 01/07/19 06:59 01/07/19 06:59 01/07/19 06:59 01/07/19 06:59 - Laboratory Result Diagrams: 01/07/19 06:00 01/06/19 21:05 Laboratory results interpreted by me: 01/06/19 01/06/19 01/06/19 21:01 21:05 21:05 RBC 2.51 L Hgb 6.8 L Hct 20.9 L Plt Count 131 L Sodium 135.6 L Total Protein Urine Protein >=500 H Urine Blood LARGE H Crossmatch 01/06/19 01/06/19 01/07/19 21:05 21:35 06:00 RBC 3.23 L Hgb 9.1 L D Hct 27.1 L Plt Count 120 L Sodium Total Protein 5.8 L Urine Protein Urine Blood Crossmatch See Detail Discharge - Discharge Clinical Impression: Symptomatic anemia Hematuria Qualifiers: Hematuria type: gross Qualified Code(s): R31.0 - Gross hematuria Condition: Stable Disposition: HOME, SELF-CARE Additional Instructions: You have been transfused because of your low blood counts. This did significantly improve your blood counts. You have refused to keep in the recommended Thao catheter, there is a good chance that you will obstruct again from clotting and not be able to urinate. Please follow-up closely with your urologist for additional management. Return if you cannot urinate, develop abdominal pain, develop severe/heavy bleeding, dizziness, passing out, fever/chills, or any other concerning symptoms. Referrals: AMAYA CHAVEZ MD [Primary Care Provider] - Follow up as needed
[2019-01-06 21:30] LABS: ABSOLUTE EOSINOPHILS # (AUTO) 0.2 10^3/uL (0.0-0.6); ABSOLUTE LYMPHOCYTES (AUTO) 0.8 10^3/uL (0.5-4.7); ABSOLUTE MONOCYTES (AUTO) 0.3 10^3/uL (0.1-1.4); ABSOLUTE NEUT (AUTO) 3.3 10^3/uL (1.7-8.2); BASOPHILS % (AUTO) 0.5 % (0-2); HEMATOCRIT 20.9 % (37.9-51.0); LYMPHOCYTES % (AUTO) 17.9 % (13-45); MEAN CORPUSCULAR HEMOGLOBIN 27.3 pg (27.0-33.4); MEAN CORPUSCULAR HGB CONC 32.8 g/dL (32.0-36.0); MEAN CORPUSCULAR VOLUME 83 fl (80-97); MONOCYTES % (AUTO) 6.5 % (3-13); PLATELET COUNT 131 10^3/uL (150-450); RED BLOOD COUNT 2.51 10^6/uL (4.35-5.55); RED CELL DISTRIBUTION WIDTH 13.5 % (11.5-14.0); SEGMENTED NEUTROPHILS % (AUTO) 71.1 % (42-78); TOTAL CELLS COUNTED % (AUTO) 100 %; WHITE BLOOD COUNT 4.7 10^3/uL (4.0-10.5)
[2019-01-06 21:32] LABS: HEMOGLOBIN 6.8 g/dL (13.5-17.0)
[2019-01-06 21:51] LABS: ANION GAP 6 (5-19); BLOOD UREA NITROGEN 11 mg/dL (7-20); CALCIUM 8.8 mg/dL (8.4-10.2); CARBON DIOXIDE 25 mmol/L (22-30); CHLORIDE 105 mmol/L (98-107); GLUCOSE 91 mg/dL (75-110); POTASSIUM 4.2 mmol/L (3.6-5.0)
[2019-01-06 21:59] LABS: INTERNATIONAL RATION (INR) 1.04; PROTHROMBIN TIME 13.6 SEC (11.4-15.4)
[2019-01-06 21:59] LABS: ALBUMIN 3.5 g/dL (3.5-5.0); ALKALINE PHOSPHATASE 72 U/L (38-126); ASPARTATE AMINO TRANSFERASE 26 U/L (17-59); BILIRUBIN,DIRECT 0.2 mg/dL (0.0-0.4); BILIRUBIN,TOTAL 0.2 mg/dL (0.2-1.3); TOTAL PROTEIN 5.8 g/dL (6.3-8.2)
[2019-01-06] MEDS ORDERED: NORMAL SALINE 250 ML IV PRN ×2 (22:25)
[2019-01-06 22:39] LABS: BILIRUBIN,URINE NEGATIVE (NEGATIVE); GLUCOSE, URINE NEGATIVE (NEGATIVE); KETONES,URINE NEGATIVE (NEGATIVE); LEUKOCYTE ESTERASE,URINE NEGATIVE (NEGATIVE); NITRITE,URINE NEGATIVE (NEGATIVE); PROTEIN,URINE >=500 mg/dL (NEGATIVE); URINE SPECIFIC GRAVITY 1.009; UROBILINOGEN,URINE NEGATIVE mg/dL (<2.0)
[2019-01-06 22:47] LABS: APPEARANCE,URINE TURBID
[2019-01-06 22:48] LABS: ADD MANUAL MICROSCOPIC YES; COLOR,URINE RED; RBC,URINE TOO NUMEROUS TO CNT /HPF; WBC,URINE 0-1 /HPF
[2019-01-07] MEDS ORDERED: HYDROMORPHONE HCL INJ/PF 2 MG/ML AMPULE IV ONE (02:58)
[2019-01-07 06:26] LABS: ABSOLUTE EOSINOPHILS # (AUTO) 0.3 10^3/uL (0.0-0.6); ABSOLUTE LYMPHOCYTES (AUTO) 1.2 10^3/uL (0.5-4.7); ABSOLUTE MONOCYTES (AUTO) 0.4 10^3/uL (0.1-1.4); ABSOLUTE NEUT (AUTO) 3.5 10^3/uL (1.7-8.2); BASOPHILS % (AUTO) 0.5 % (0-2); EOSINOPHILS % (AUTO) 5.7 % (0-6); HEMATOCRIT 27.1 % (37.9-51.0); LYMPHOCYTES % (AUTO) 21.6 % (13-45); MEAN CORPUSCULAR HEMOGLOBIN 28.1 pg (27.0-33.4); MEAN CORPUSCULAR HGB CONC 33.5 g/dL (32.0-36.0); MEAN CORPUSCULAR VOLUME 84 fl (80-97); MONOCYTES % (AUTO) 7.1 % (3-13); PLATELET COUNT 120 10^3/uL (150-450); RED BLOOD COUNT 3.23 10^6/uL (4.35-5.55); RED CELL DISTRIBUTION WIDTH 13.4 % (11.5-14.0); SEGMENTED NEUTROPHILS % (AUTO) 65.1 % (42-78); TOTAL CELLS COUNTED % (AUTO) 100 %; WHITE BLOOD COUNT 5.4 10^3/uL (4.0-10.5)
[2019-01-07 06:30] LABS: HEMOGLOBIN 9.1 g/dL (13.5-17.0)
[2019-01-07 07:00] VITALS: BP 111/60
== END 2019-01-07 07:00 | disposition home or self-care (01) ==
LOC: ER 17:59
DX: R31.0 Gross hematuria (principal); D64.89 Other specified anemias; R33.9 Retention of urine, unspecified; R10.30 Lower abdominal pain, unspecified
CPT/HCPCS: 96376; 99283; 51702; 96374; 96375; 86900; 86901; 36415; 87086; 36430; 86850; 85025; 85610; 85730; 80076; 80048; 81001; 86920; P9016; J1170 ×2; J2405

== ENCOUNTER 2019-01-20 18:29 | Emergency (ER) | payer MEDICARE, MEDICAID ==
--- NOTE | 2019-01-20 19:08 | ER Document Report ---
ED Medical Screen (RME) - General Chief Complaint: Urinary Problem Stated Complaint: DIFFICULTY URINATING Time Seen by Provider: 01/20/19 19:03 Primary Care Provider: AMAYA CHAVEZ MD [Primary Care Provider] - Follow up as needed Mode of Arrival: Ambulatory Information source: Patient Notes: 78-year-old male presented to ED for urinary retention since 730 this morning. He states he had to come in about 10 days ago for the same problem and was given a Thao catheter drained his bladder and then remove the Thao and discharged home. He states he does not want to leave the Thao in after he is drained his bladder and been seen by the doctor. He states he does have a urology appointment on February 07. Patient is alert and oriented respirations regular and unlabored speaking in full sentences. He states he is in a lot of pain due to urinary retention. I have greeted and performed a rapid initial assessment of this patient. A comprehensive ED assessment and evaluation of the patient, analysis of test results and completion of medical decision making process will be conducted by an additional ED providers. TRAVEL OUTSIDE OF THE [place] IN LAST 30 DAYS: No - Related Data Allergies/Adverse Reactions: No Known Allergies Allergy (Verified 01/20/19 18:31) Past Medical History - Social History Family history: None - Past Medical History Cardiac Medical History: Denies: Hx Coronary Artery Disease, Hx Heart Attack, Hx Hypertension Pulmonary Medical History: Denies: Hx Asthma, Hx Bronchitis, Hx COPD, Hx Pneumonia Neurological Medical History: Denies: Hx Cerebrovascular Accident, Hx Seizures Renal/ Medical History: Denies: Hx Peritoneal Dialysis Musculoskeltal Medical History: Reports Hx Arthritis - shoulder, low back, Reports Hx Musculoskeletal Deformity, Reports Hx Musculoskeletal Trauma Skin Medical History: Reports Hx Psoriasis Psychiatric Medical History: Reports: Hx Depression Past Surgical History: Reports: Hx Cholecystectomy - Immunizations Immunizations up to date: No Hx Diphtheria, Pertussis, Tetanus Vaccination: Yes Physical Exam - Vital signs Vitals: Temp Pulse Resp BP Pulse Ox 98.1 F 107 H 18 144/96 H 100 01/20/19 18:39 01/20/19 18:39 01/20/19 18:39 01/20/19 18:39 01/20/19 18:39 Course - Vital Signs Vital signs: Temp Pulse Resp BP Pulse Ox 98.1 F 107 H 18 144/96 H 100 01/20/19 18:39 01/20/19 18:39 01/20/19 18:39 01/20/19 18:39 01/20/19 18:39 Doctor's Discharge - Discharge Referrals: AMAYA CHAVEZ MD [Primary Care Provider] - Follow up as needed
[2019-01-20] MEDS ORDERED: LIDOCAINE 2% URO-JET 5 ML KIT MM ONE ×2 (19:18→23:00)
[2019-01-20] MEDS ORDERED: HYDROMORPHONE HCL INJ/PF 2 MG/ML AMPULE IV ONE ×3 (19:30→23:02)
[2019-01-20 20:27] LABS: ABSOLUTE EOSINOPHILS # (AUTO) 0.1 10^3/uL (0.0-0.6); ABSOLUTE LYMPHOCYTES (AUTO) 0.7 10^3/uL (0.5-4.7); ABSOLUTE MONOCYTES (AUTO) 0.5 10^3/uL (0.1-1.4); ABSOLUTE NEUT (AUTO) 4.7 10^3/uL (1.7-8.2); BASOPHILS % (AUTO) 0.6 % (0-2); EOSINOPHILS % (AUTO) 1.2 % (0-6); HEMATOCRIT 21.4 % (37.9-51.0); LYMPHOCYTES % (AUTO) 12.4 % (13-45); MEAN CORPUSCULAR HEMOGLOBIN 25.8 pg (27.0-33.4); MEAN CORPUSCULAR HGB CONC 32.4 g/dL (32.0-36.0); MONOCYTES % (AUTO) 7.6 % (3-13); PLATELET COUNT 150 10^3/uL (150-450); RED BLOOD COUNT 2.69 10^6/uL (4.35-5.55); RED CELL DISTRIBUTION WIDTH 14.9 % (11.5-14.0); SEGMENTED NEUTROPHILS % (AUTO) 78.2 % (42-78); TOTAL CELLS COUNTED % (AUTO) 100 %
[2019-01-20 20:32] LABS: HEMOGLOBIN 6.9 g/dL (13.5-17.0)
[2019-01-20 20:37] LABS: MEAN CORPUSCULAR VOLUME 80 fl (80-97)
[2019-01-20] MEDS ORDERED: HYDROMORPHONE HCL INJ/PF 2 MG/ML AMPULE ONE (20:38)
--- NOTE | 2019-01-20 20:42 | ER Document Report ---
ED GI/ - General Mode of Arrival: Ambulatory TRAVEL OUTSIDE OF THE [place] IN LAST 30 DAYS: No <VERONA YAP - Last Filed: 01/21/19 01:48> <ARIELLE SIMMONS - Last Filed: 01/21/19 10:01> - General Chief Complaint: Urinary Problem Stated Complaint: DIFFICULTY URINATING Time Seen by Provider: 01/20/19 19:03 Primary Care Provider: AMAYA CHAVEZ MD [Primary Care Provider] - Follow up as needed Notes: RME NOTE: 78-year-old male presented to ED for urinary retention since 730 this morning. He states he had to come in about 10 days ago for the same problem and was given a Thao catheter drained his bladder and then remove the Thao and discharged home. He states he does not want to leave the Thao in after he is drained his bladder and been seen by the doctor. He states he does have a urology appointment on February 07. Patient is alert and oriented respirations regular and unlabored speaking in full sentences. He states he is in a lot of pain due to urinary retention. MY HPI: In reviewing past notes patient was adamant about having the Thao removed. Provider did state they would like the Thao to be continually placed until follow-up with urology. Patient states he did not want the Thao to continue to be placed and he also does not want the Thao to stay in place at this visit. Patient states he has been urinating "fine" since Discharge on 01/06/19. States he has been passing large blood clots but has had no urinary retention. Patient's denying lightheadedness, dizziness, weakness, respiratory distress. (VERONA YAP) - Related Data Allergies/Adverse Reactions: No Known Allergies Allergy (Verified 01/20/19 18:31) Past Medical History - General Information source: Patient - Social History Smoking Status: Former Smoker Frequency of alcohol use: None Drug Abuse: None Family History: Reviewed & Not Pertinent, Malignancy Patient has suicidal ideation: No Patient has homicidal ideation: No - Past Medical History Cardiac Medical History: Denies: Hx Coronary Artery Disease, Hx Heart Attack, Hx Hypertension Pulmonary Medical History: Denies: Hx Asthma, Hx Bronchitis, Hx COPD, Hx Pneumonia Neurological Medical History: Denies: Hx Cerebrovascular Accident, Hx Seizures Renal/ Medical History: Denies: Hx Peritoneal Dialysis Musculoskeletal Medical History: Reports Hx Arthritis - shoulder, low back, Reports Hx Musculoskeletal Deformity, Reports Hx Musculoskeletal Trauma Skin Medical History: Reports Hx Psoriasis Psychiatric Medical History: Reports: Hx Depression Past Surgical History: Reports: Hx Cholecystectomy - Immunizations Immunizations up to date: No Hx Diphtheria, Pertussis, Tetanus Vaccination: Yes <VERONA YAP - Last Filed: 01/21/19 01:48> Review of Systems - Review of Systems Constitutional: denies: Fever EENT: No symptoms reported Cardiovascular: No symptoms reported Respiratory: No symptoms reported Gastrointestinal: See HPI Genitourinary: See HPI Male Genitourinary: See HPI Musculoskeletal: No symptoms reported Skin: No symptoms reported Hematologic/Lymphatic: See HPI Neurological/Psychological: No symptoms reported <VERONA YAP - Last Filed: 01/21/19 01:48> Physical Exam <VERONA YAP - Last Filed: 01/21/19 01:48> - Vital signs Vitals: Temp Pulse Resp BP Pulse Ox 98.1 F 107 H 18 144/96 H 100 01/20/19 18:39 01/20/19 18:39 01/20/19 18:39 01/20/19 18:39 01/20/19 18:39 - Notes Notes: GENERAL: Alert, interacts well. No acute distress. Pallor noted HEAD: Normocephalic, atraumatic. EYES: Pupils equal, round, and reactive to light. Extraocular movements intact. ENT: Oral mucosa moist, tongue midline. NECK: Full range of motion. Supple. Trachea midline. LUNGS: Clear to auscultation bilaterally, no wheezes, rales, or rhonchi. No respiratory distress. HEART: Regular rate and rhythm. No murmur ABDOMEN: Soft, non-tender. Non-distended. Bowel sounds present in all 4 quadrants. No suprapubic or pelvic pain noted. EXTREMITIES: Moves all 4 extremities spontaneously. No edema, normal radial and dorsalis pedis pulses bilaterally. No cyanosis. BACK: no cervical, thoracic, lumbar midline tenderness. No saddle anesthesia, normal distal neurovascular exam. NEUROLOGICAL: Alert and oriented x3. Normal speech. cranial nerves II through XII grossly intact. PSYCH: Normal affect, normal mood. SKIN: Warm, dry, normal turgor. No rashes or lesions noted. 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 (VERONA YAP) Course - Laboratory Result Diagrams: 01/20/19 19:50 01/20/19 19:50 <VERONA YAP - Last Filed: 01/21/19 01:48> - Laboratory Result Diagrams: 01/21/19 08:01/20/19 19:50 <ARIELLE SIMMONS - Last Filed: 01/21/19 10:01> - Re-evaluation Re-evalutation: 01/20/19 21:27 Patient's hemoglobin was noted to be 6.8 at today's visit. Patient was typed and screened and blood transfusion was ordered. Patient has asked for pain medication multiple times throughout today's visit. Patient also asked for generalized medication to calm him down as he was feeling very anxious once CBI was initiated. CBI was performed and flushing clear fluids per nursing staff. He was then stopped. Patient is currently receiving blood transfusion. Patient care and report transferred to Tadeo Abraham PA-C for reevaluation after blood transfusion and hopeful discharge. (VERONA YAP) 01/21/19 8:10 Assumed care of the patient fro BEENA Abraham. Patient is pending repeat hbg after receiving 2 units of blood. Will await repeat labs Noted labs -- H and H has improved. Rounded with patient. He would like to be discharged home. He states he will call his Urologist on Thursday. I have encouraged patient to follow up without fail and to return here immediately if his symptoms worsen. Patient agrees with the plan. (ARIELLE SIMMONS) - Vital Signs Vital signs: Temp Pulse Resp BP Pulse Ox 97.6 F 81 18 149/66 H 96 01/21/19 07:21 01/21/19 07:21 01/21/19 07:21 01/21/19 07:21 01/21/19 07:21 - Laboratory Laboratory results interpreted by me: 01/20/19 01/20/19 01/20/19 19:50 19:50 19:50 RBC 2.69 L Hgb 6.9 L Hct 21.4 L MCH 25.8 L RDW 14.9 H Plt Count Lymph % (Auto) 12.4 L Seg Neutrophils % 78.2 H Sodium 134.9 L Urine Protein 100 H Urine Blood LARGE H Crossmatch 01/20/19 01/21/19 19:50 08: RBC 3.28 L Hgb 8.8 L Hct 26.8 L MCH 26.8 L RDW 15.2 H Plt Count 123 L Lymph % (Auto) Seg Neutrophils % Sodium Urine Protein Urine Blood Crossmatch See Detail Discharge <VERONA YAP - Last Filed: 01/21/19 01:48> <ARIELLE SIMMONS - Last Filed: 01/21/19 10:01> - Discharge Clinical Impression: Hematuria Qualifiers: Hematuria type: unspecified type Qualified Code(s): R31.9 - Hematuria, unspecified Condition: Stable Disposition: HOME, SELF-CARE Instructions: Anemia ([facility]) Additional Instructions: TAKE IRON PRESCRIBED. RETURN IF WORSE AT ALL. FOLLOW UP WITH YOUR UROLOGIST WITHOUT FAIL TODAY. Prescriptions: Ferrous Sulfate 325 mg PO DAILY #20 tablet. Referrals: AMAYA CHAVEZ MD [Primary Care Provider] - Follow up as needed
[2019-01-20 20:44] LABS: ALBUMIN 3.9 g/dL (3.5-5.0); ALKALINE PHOSPHATASE 67 U/L (38-126); ANION GAP 7 (5-19); ASPARTATE AMINO TRANSFERASE 36 U/L (17-59); BILIRUBIN,DIRECT 0.4 mg/dL (0.0-0.4); BILIRUBIN,TOTAL 0.6 mg/dL (0.2-1.3); BLOOD UREA NITROGEN 15 mg/dL (7-20); CARBON DIOXIDE 27 mmol/L (22-30); CHLORIDE 101 mmol/L (98-107); GLUCOSE 102 mg/dL (75-110); POTASSIUM 3.9 mmol/L (3.6-5.0); TOTAL PROTEIN 6.7 g/dL (6.3-8.2)
[2019-01-20 20:52] LABS: INTERNATIONAL RATION (INR) 1.07; PROTHROMBIN TIME 13.9 SEC (11.4-15.4)
[2019-01-20 20:53] LABS: PARTIAL THROMBOPLASTIN TIME 29.4 SEC (23.5-35.8)
[2019-01-20 20:56] LABS: BILIRUBIN,URINE NEGATIVE (NEGATIVE); GLUCOSE, URINE NEGATIVE (NEGATIVE); KETONES,URINE NEGATIVE (NEGATIVE); LEUKOCYTE ESTERASE,URINE NEGATIVE (NEGATIVE); NITRITE,URINE NEGATIVE (NEGATIVE); PROTEIN,URINE 100 mg/dL (NEGATIVE); URINE SPECIFIC GRAVITY 1.014; UROBILINOGEN,URINE NEGATIVE mg/dL (<2.0)
[2019-01-20] MEDS ORDERED: NORMAL SALINE 250 ML IV PRN ×2 (21:00)
[2019-01-20 21:03] LABS: APPEARANCE,URINE TURBID; COLOR,URINE RED
[2019-01-20] MEDS ORDERED: ONDANSETRON HCL INJ/PF 4 MG/2 ML SDV IV ONE (23:02)
[2019-01-20] MEDS ORDERED: LORAZEPAM INJ 2 MG/1 ML VIAL IV ONE (23:21)
[2019-01-21] MEDS ORDERED: HYDROMORPHONE HCL INJ/PF 2 MG/ML AMPULE IV ONE ×2 (00:07→03:11)
[2019-01-21 08:34] LABS: HEMATOCRIT 26.8 % (37.9-51.0); HEMOGLOBIN 8.8 g/dL (13.5-17.0); MEAN CORPUSCULAR HEMOGLOBIN 26.8 pg (27.0-33.4); MEAN CORPUSCULAR HGB CONC 32.7 g/dL (32.0-36.0); MEAN CORPUSCULAR VOLUME 82 fl (80-97); PLATELET COUNT 123 10^3/uL (150-450); RED BLOOD COUNT 3.28 10^6/uL (4.35-5.55); RED CELL DISTRIBUTION WIDTH 15.2 % (11.5-14.0); WHITE BLOOD COUNT 5.5 10^3/uL (4.0-10.5)
[2019-01-21 10:24] VITALS: BP 135/53
== END 2019-01-21 10:15 | disposition home or self-care (01) ==
LOC: ER 18:29
DX: R31.9 Hematuria, unspecified (principal); R30.0 Dysuria; Z90.49 Acquired absence of other specified parts of digestive tract
CPT/HCPCS: 96376; 99283; 51702; 96374; 96375; 86900; 86901; 36415; 87086; 36430; 86850; 85025; 85027; 85610; 85730; 80053; 81001; 86920; C1758; P9016; J1170 ×2; J2060; J2405; J7050; A9270; J3490

== ENCOUNTER 2019-02-02 11:31 | Emergency (ER) | payer MEDICARE, MEDICAID ==
--- NOTE | 2019-02-02 11:42 | ER Document Report ---
ED Medical Screen (RME) - General Chief Complaint: General Weakness Stated Complaint: WEAKNESS Time Seen by Provider: 02/02/19 11:40 Primary Care Provider: AMAYA CHAVEZ MD [Primary Care Provider] - Follow up as needed Mode of Arrival: Ambulatory Information source: Patient Notes: 78-year-old male presented to ED for complaint of hematuria. He states he has had blood in his urine for about 3 months. 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 He states in December he did need to get transfusion due to the amount of blood loss. He states he feels that same way again tired and weak and thinks he needs more blood. 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 He is alert oriented respirations regular and unlabored speaking in full sentences. I have greeted and performed a rapid initial assessment of this patient. A comprehensive ED assessment and evaluation of the patient, analysis of test results and completion of medical decision making process will be conducted by an additional ED providers. TRAVEL OUTSIDE OF THE [place] IN LAST 30 DAYS: No - Related Data Allergies/Adverse Reactions: No Known Allergies Allergy (Verified 02/02/19 11:32) Past Medical History - Social History Family history: None - Past Medical History Cardiac Medical History: Denies: Hx Coronary Artery Disease, Hx Heart Attack, Hx Hypertension Pulmonary Medical History: Denies: Hx Asthma, Hx Bronchitis, Hx COPD, Hx Pneumonia Neurological Medical History: Denies: Hx Cerebrovascular Accident, Hx Seizures Renal/ Medical History: Denies: Hx Peritoneal Dialysis Musculoskeltal Medical History: Reports Hx Arthritis - shoulder, low back, Reports Hx Musculoskeletal Deformity, Reports Hx Musculoskeletal Trauma Skin Medical History: Reports Hx Psoriasis Psychiatric Medical History: Reports: Hx Depression Past Surgical History: Reports: Hx Cholecystectomy - Immunizations Immunizations up to date: No Hx Diphtheria, Pertussis, Tetanus Vaccination: Yes Physical Exam - Vital signs Vitals: Temp Pulse Resp BP Pulse Ox 98.2 F 71 14 139/54 H 100 02/02/19 11:36 02/02/19 11:36 02/02/19 11:36 02/02/19 11:36 02/02/19 11:36 Course - Vital Signs Vital signs: Temp Pulse Resp BP Pulse Ox 98.2 F 71 14 139/54 H 100 02/02/19 11:36 02/02/19 11:36 02/02/19 11:36 02/02/19 11:36 02/02/19 11:36 Doctor's Discharge - Discharge Referrals: AMAYA CHAVEZ MD [Primary Care Provider] - Follow up as needed
[2019-02-02 12:22] LABS: ABSOLUTE EOSINOPHILS # (AUTO) 0.1 10^3/uL (0.0-0.6); ABSOLUTE LYMPHOCYTES (AUTO) 0.7 10^3/uL (0.5-4.7); ABSOLUTE MONOCYTES (AUTO) 0.3 10^3/uL (0.1-1.4); ABSOLUTE NEUT (AUTO) 3.3 10^3/uL (1.7-8.2); BASOPHILS % (AUTO) 0.6 % (0-2); EOSINOPHILS % (AUTO) 1.5 % (0-6); HEMATOCRIT 19.9 % (37.9-51.0); LYMPHOCYTES % (AUTO) 16.4 % (13-45); MEAN CORPUSCULAR HEMOGLOBIN 24.9 pg (27.0-33.4); MONOCYTES % (AUTO) 7.2 % (3-13); PLATELET COUNT 152 10^3/uL (150-450); RED BLOOD COUNT 2.56 10^6/uL (4.35-5.55); SEGMENTED NEUTROPHILS % (AUTO) 74.3 % (42-78); TOTAL CELLS COUNTED % (AUTO) 100 %; WHITE BLOOD COUNT 4.4 10^3/uL (4.0-10.5)
[2019-02-02 12:33] LABS: MEAN CORPUSCULAR VOLUME 78 fl (80-97)
[2019-02-02 12:37] LABS: ALBUMIN 3.4 g/dL (3.5-5.0); ALKALINE PHOSPHATASE 72 U/L (38-126); ANION GAP 6 (5-19); ASPARTATE AMINO TRANSFERASE 20 U/L (17-59); BILIRUBIN,DIRECT 0.2 mg/dL (0.0-0.4); BILIRUBIN,TOTAL 0.4 mg/dL (0.2-1.3); BLOOD UREA NITROGEN 9 mg/dL (7-20); CALCIUM 8.7 mg/dL (8.4-10.2); CARBON DIOXIDE 26 mmol/L (22-30); CHLORIDE 105 mmol/L (98-107); GLUCOSE 115 mg/dL (75-110); HEMOGLOBIN 6.4 g/dL (13.5-17.0); TOTAL PROTEIN 5.9 g/dL (6.3-8.2)
[2019-02-02] MEDS ORDERED: NORMAL SALINE 250 ML IV PRN (12:59)
--- NOTE | 2019-02-02 13:01 | ER Document Report ---
ED General - General Chief Complaint: General Weakness Stated Complaint: WEAKNESS Time Seen by Provider: 02/02/19 11:40 Primary Care Provider: AMAYA CHAVEZ MD [Primary Care Provider] - Follow up as needed Mode of Arrival: Ambulatory Notes: 78-year-old male presents the emergency department stating he thinks he needs a blood transfusion. Patient states that he had a surgical procedure at [facility] by Dr. Chun 8 weeks ago on his bladder resulting in hematuria. Patient has been told he should expect to bleed for 10 to 12 weeks postoperatively. For the past 2 days he has been feeling very weak and dizzy, lightheaded and having dyspnea on exertion but denies any chest pain. Patient states he felt the same way 2 weeks ago and ended up needing a blood transfusion. Patient thinks he needs another blood transfusion today. Does not take any blood thinners, denies any worsening of his bleeding. TRAVEL OUTSIDE OF THE [place] IN LAST 30 DAYS: No - Related Data Allergies/Adverse Reactions: No Known Allergies Allergy (Verified 02/02/19 11:32) Past Medical History - General Information source: Patient - Social History Smoking Status: Never Smoker Chew tobacco use (# tins/day): No Frequency of alcohol use: None Drug Abuse: None Family History: Reviewed & Not Pertinent, Malignancy Patient has suicidal ideation: No Patient has homicidal ideation: No - Past Medical History Cardiac Medical History: Denies: Hx Coronary Artery Disease, Hx Heart Attack, Hx Hypertension Pulmonary Medical History: Denies: Hx Asthma, Hx Bronchitis, Hx COPD, Hx Pneumonia Neurological Medical History: Denies: Hx Cerebrovascular Accident, Hx Seizures Renal/ Medical History: Denies: Hx Peritoneal Dialysis Musculoskeletal Medical History: Reports Hx Arthritis - shoulder, low back, Reports Hx Musculoskeletal Deformity, Reports Hx Musculoskeletal Trauma Skin Medical History: Reports Hx Psoriasis Psychiatric Medical History: Reports: Hx Depression Past Surgical History: Reports: Hx Cholecystectomy - Immunizations Immunizations up to date: No Hx Diphtheria, Pertussis, Tetanus Vaccination: Yes Review of Systems - Review of Systems Constitutional: See HPI, Weakness Cardiovascular: See HPI Respiratory: See HPI Male Genitourinary: See HPI Hematologic/Lymphatic: See HPI - Hematuria -: Yes All other systems reviewed and negative Physical Exam - Vital signs Vitals: Temp Pulse Resp BP Pulse Ox 98.2 F 71 14 139/54 H 100 02/02/19 11:36 02/02/19 11:36 02/02/19 11:36 02/02/19 11:36 02/02/19 11:36 Interpretation: Normal - Notes Notes: GENERAL: Alert, interacts well. No acute distress. HEAD: Normocephalic, atraumatic EYES: Pupils equal, round and reactive to light, extraocular movements intact. ENT: Oral mucosa moist, tongue midline. NECK: Full range of motion, supple, trachea midline. LUNGS: Clear to auscultation bilaterally, no wheezes, rales or rhonchi, no respiratory distress. HEART: Regular rate and rhythm, no murmurs, gallops, rubs. ABDOMEN: Soft, nontender, nondistended, bowel sounds present in all 4 quadrants. EXTREMITIES: Moves all 4 extremities spontaneously, trace edema at the ankles,edema, radial and dorsalis pedis pulses 2/4 bilaterally. No cyanosis. NEUROLOGICAL: Alert and oriented x3, normal speech. PSYCH: Normal mood, normal affect. SKIN: Warm, Dry, normal turgor, no rashes or lesions noted. Mosley colored urine noted at the bedside. Course - Re-evaluation Re-evalutation: 02/02/19 14:11 CBC shows anemia with a hemoglobin 6.4, 2 units have been ordered, CMP grossly unremarkable, patient is having blood loss for a known reason, this reason has not changed. Patient appropriately identified when he was feeling weak. Patient will be transfused 2 units and then discharged to home. - Vital Signs Vital signs: Temp Pulse Resp BP Pulse Ox 97.4 F 69 15 97/57 L 100 02/02/19 17:51 02/02/19 16:00 02/02/19 17:51 02/02/19 17:51 02/02/19 17:51 - Laboratory Result Diagrams: 02/02/19 12:06 02/02/19 12:06 Laboratory results interpreted by me: 02/02/19 02/02/19 02/02/19 12:06 12:06 12:06 RBC 2.56 L Hgb 6.4 L Hct 19.9 L MCV 78 L D MCH 24.9 L RDW 17.0 H Glucose 115 H Total Protein 5.9 L Albumin 3.4 L Crossmatch See Detail Discharge - Discharge Clinical Impression: Acute blood loss anemia Hematuria Qualifiers: Hematuria type: gross Qualified Code(s): R31.0 - Gross hematuria Condition: Stable Disposition: HOME, SELF-CARE Additional Instructions: Today we transfused you 2 units of blood. If you start feeling weak, shortness of breath when walking, dizzy or having any new or concerning symptoms please return the emergency department. Referrals: AMAYA CHAVEZ MD [Primary Care Provider] - Follow up as needed
[2019-02-02 18:05] VITALS: BP 97/57
== END 2019-02-02 18:06 | disposition home or self-care (01) ==
LOC: ER 11:31
DX: D62 Acute posthemorrhagic anemia (principal); R31.0 Gross hematuria; R53.1 Weakness; R42 Dizziness and giddiness; R06.09 Other forms of dyspnea; R60.0 Localized edema; Z98.890 Other specified postprocedural states
CPT/HCPCS: 99283; 86900; 86901; 36415; 36430; 86850; 85025; 80053; 86920; P9016

== ENCOUNTER 2019-02-09 09:42 | Outpatient (CLI) | payer MEDICARE, MEDICAID ==
[2019-02-09 10:05] LABS: ABSOLUTE EOSINOPHILS # (AUTO) 0.1 10^3/uL (0.0-0.6); ABSOLUTE LYMPHOCYTES (AUTO) 0.7 10^3/uL (0.5-4.7); ABSOLUTE MONOCYTES (AUTO) 0.5 10^3/uL (0.1-1.4); ABSOLUTE NEUT (AUTO) 4.2 10^3/uL (1.7-8.2); BASOPHILS % (AUTO) 0.5 % (0-2); HEMATOCRIT 21.3 % (37.9-51.0); LYMPHOCYTES % (AUTO) 13.5 % (13-45); MEAN CORPUSCULAR HEMOGLOBIN 25.3 pg (27.0-33.4); MEAN CORPUSCULAR HGB CONC 31.9 g/dL (32.0-36.0); MEAN CORPUSCULAR VOLUME 79 fl (80-97); MONOCYTES % (AUTO) 8.4 % (3-13); PLATELET COUNT 154 10^3/uL (150-450); RED BLOOD COUNT 2.68 10^6/uL (4.35-5.55); RED CELL DISTRIBUTION WIDTH 17.8 % (11.5-14.0); SEGMENTED NEUTROPHILS % (AUTO) 76.6 % (42-78); TOTAL CELLS COUNTED % (AUTO) 100 %; WHITE BLOOD COUNT 5.4 10^3/uL (4.0-10.5)
[2019-02-09 10:08] LABS: HEMOGLOBIN 6.8 g/dL (13.5-17.0)
[2019-02-09] MEDS ORDERED: ACETAMINOPHEN 325 MG TABLET PO PRN (10:14)
[2019-02-09] MEDS ORDERED: DIPHENHYDRAMINE HCL 25 MG CAPSULE PO PRN (10:17)
[2019-02-09] MEDS ORDERED: NORMAL SALINE 250 ML IV PRN (10:24)
[2019-02-09 15:24] VITALS: BP 124/41
[2019-02-09 16:01] LABS: HEMOGLOBIN 8.3 g/dL (13.5-17.0); MEAN CORPUSCULAR HEMOGLOBIN 26.5 pg (27.0-33.4); MEAN CORPUSCULAR VOLUME 80 fl (80-97); PLATELET COUNT 135 10^3/uL (150-450); RED BLOOD COUNT 3.12 10^6/uL (4.35-5.55); RED CELL DISTRIBUTION WIDTH 17.3 % (11.5-14.0); WHITE BLOOD COUNT 5.4 10^3/uL (4.0-10.5)
== END 2019-02-09 16:00 | disposition home or self-care (01) ==
LOC: LAB 09:42 → 5TH 09:46 → LAB 16:00
PROVIDERS: ATTEND Internal Medicine Geriatric Medicine
PROC: 30233N1 Transfusion of Nonautologous Red Blood Cells into Peripheral Vein, Percutaneous Approach (ICD-10-PCS; principal; 2019-02-09)
DX: D50.0 Iron deficiency anemia secondary to blood loss (chronic) (principal); R42 Dizziness and giddiness; C67.9 Malignant neoplasm of bladder, unspecified; R31.9 Hematuria, unspecified; N40.1 Benign prostatic hyperplasia with lower urinary tract symptoms; N13.8 Other obstructive and reflux uropathy; B18.2 Chronic viral hepatitis C; L40.50 Arthropathic psoriasis, unspecified; M19.90 Unspecified osteoarthritis, unspecified site; Z79.899 Other long term (current) drug therapy
CPT/HCPCS: 86900; 86901; 36415; 36430; 86850; 85025; 86920; P9016; A9270 ×2

== ENCOUNTER 2019-02-18 02:10 | Emergency (ER) | payer MEDICARE, MEDICAID ==
[2019-02-18 04:02] LABS: APPEARANCE,URINE CLEAR; BILIRUBIN,URINE NEGATIVE (NEGATIVE); GLUCOSE, URINE 50 mg/dL (NEGATIVE); KETONES,URINE TRACE mg/dL (NEGATIVE); LEUKOCYTE ESTERASE,URINE NEGATIVE (NEGATIVE); NITRITE,URINE NEGATIVE (NEGATIVE); PROTEIN,URINE >=500 mg/dL (NEGATIVE); URINE SPECIFIC GRAVITY 1.013; UROBILINOGEN,URINE NEGATIVE mg/dL (<2.0)
[2019-02-18 04:07] LABS: COLOR,URINE RED
[2019-02-18 04:32] LABS: ABSOLUTE EOSINOPHILS # (AUTO) 0.1 10^3/uL (0.0-0.6); ABSOLUTE MONOCYTES (AUTO) 0.7 10^3/uL (0.1-1.4); BASOPHILS % (AUTO) 0.5 % (0-2); EOSINOPHILS % (AUTO) 1.2 % (0-6); HEMATOCRIT 18.1 % (37.9-51.0); LYMPHOCYTES % (AUTO) 12.4 % (13-45); MEAN CORPUSCULAR HEMOGLOBIN 25.1 pg (27.0-33.4); MEAN CORPUSCULAR HGB CONC 32.4 g/dL (32.0-36.0); MEAN CORPUSCULAR VOLUME 77 fl (80-97); MONOCYTES % (AUTO) 8.9 % (3-13); PLATELET COUNT 188 10^3/uL (150-450); RED BLOOD COUNT 2.34 10^6/uL (4.35-5.55); RED CELL DISTRIBUTION WIDTH 18.4 % (11.5-14.0); TOTAL CELLS COUNTED % (AUTO) 100 %; WHITE BLOOD COUNT 7.8 10^3/uL (4.0-10.5)
[2019-02-18 04:35] LABS: HEMOGLOBIN 5.9 g/dL (13.5-17.0)
[2019-02-18 04:41] LABS: ALBUMIN 3.7 g/dL (3.5-5.0); ALKALINE PHOSPHATASE 73 U/L (38-126); ANION GAP 11 (5-19); ASPARTATE AMINO TRANSFERASE 22 U/L (17-59); BILIRUBIN,DIRECT 0.1 mg/dL (0.0-0.4); BILIRUBIN,TOTAL 0.5 mg/dL (0.2-1.3); BLOOD UREA NITROGEN 9 mg/dL (7-20); CALCIUM 8.9 mg/dL (8.4-10.2); CARBON DIOXIDE 22 mmol/L (22-30); CHLORIDE 100 mmol/L (98-107); CREATINE KINASE 35 U/L (55-170); GLUCOSE 124 mg/dL (75-110); POTASSIUM 4.3 mmol/L (3.6-5.0); TOTAL PROTEIN 6.1 g/dL (6.3-8.2)
[2019-02-18] MEDS ORDERED: NORMAL SALINE 250 ML IV PRN ×2 (04:42)
[2019-02-18 04:53] LABS: CREATINE KINASE MB 1.42 ng/mL (<4.55); TROPONIN I < 0.012 ng/mL
--- NOTE | 2019-02-18 05:39 | ER Document Report ---
ED Dizziness/Weakness - General Chief Complaint: General Weakness Stated Complaint: DIZZINESS Time Seen by Provider: 02/18/19 04:36 Primary Care Provider: AMAYA CHAVEZ MD [Primary Care Provider] - Follow up as needed TRAVEL OUTSIDE OF THE [place] IN LAST 30 DAYS: No - HPI Notes: This is a 78-year-old gentleman with a history of bladder cancer who presents today with a complaint of generalized weakness, bloody urine. Patient has an indwelling Thao catheter. Patient states that he noted little blood and blood clots in the catheter. He denies any abdominal pain. He denies any dark or bloody stools. He denies any focal neurologic complaints. He complains of generalized weakness. Patient notes that he has had multiple blood transfusions in the past secondary to these. There are no obvious aggravating or relieving factors. - Related Data Allergies/Adverse Reactions: No Known Allergies Allergy (Verified 02/02/19 11:32) Past Medical History - Social History Smoking Status: Never Smoker Chew tobacco use (# tins/day): No Frequency of alcohol use: None Drug Abuse: None Family History: Reviewed & Not Pertinent, Malignancy Patient has suicidal ideation: No Patient has homicidal ideation: No - Past Medical History Cardiac Medical History: Denies: Hx Coronary Artery Disease, Hx Heart Attack, Hx Hypertension Pulmonary Medical History: Denies: Hx Asthma, Hx Bronchitis, Hx COPD, Hx Pneumonia Neurological Medical History: Denies: Hx Cerebrovascular Accident, Hx Seizures Renal/ Medical History: Denies: Hx Peritoneal Dialysis Musculoskeletal Medical History: Reports Hx Arthritis - shoulder, low back, Reports Hx Musculoskeletal Deformity, Reports Hx Musculoskeletal Trauma Skin Medical History: Reports Hx Psoriasis Psychiatric Medical History: Reports: Hx Depression Past Surgical History: Reports: Hx Cholecystectomy - Immunizations Immunizations up to date: No Hx Diphtheria, Pertussis, Tetanus Vaccination: Yes Review of Systems - Review of Systems Gastrointestinal: denies: Abdominal pain, Diarrhea, Nausea Genitourinary: Hematuria. denies: Flank pain Musculoskeletal: denies: Back pain, Joint pain Neurological/Psychological: Weakness -: Yes All other systems reviewed and negative Physical Exam - Vital signs Vitals: Temp Pulse Resp BP Pulse Ox 97.4 F 99 20 145/57 H 100 02/18/19 03:12 02/18/19 03:12 02/18/19 03:12 02/18/19 03:12 02/18/19 03:12 - General General appearance: Appears well, Alert - HEENT Head: Normocephalic, Atraumatic Eyes: Normal Pupils: PERRL - Respiratory Respiratory status: No respiratory distress Chest status: Nontender Breath sounds: Normal Chest palpation: Normal - Cardiovascular Rhythm: Regular Heart sounds: Normal auscultation Murmur: No - Abdominal Inspection: Normal Distension: No distension Bowel sounds: Normal Tenderness: Nontender Organomegaly: No organomegaly - Rectal Tenderness: No Stool: Heme negative Hemorrhoids: None - Genitourinary Inspection: Other - Patient has an indwelling Thao catheter. Catheter was irrigated by nurse. There was some blood. It cleared up well. - Neurological Neuro grossly intact: Yes Cognition: Normal Orientation: AAOx4 [place] Coma Scale Eye Opening: Spontaneous [place] Coma Scale Verbal: Oriented [place] Coma Scale Motor: Obeys Commands [place] Coma Scale Total: 15 Speech: Normal Motor strength normal: LUE, RUE, LLE, RLE Sensory: Normal - Skin Skin Temperature: Warm Skin Moisture: Dry Course - Re-evaluation Re-evalutation: 02/18/19 05:37 Clinically patient suggests gross hematuria likely secondary to malignancy. Will check basic labs. Patient is profoundly anemic. He will require blood transfusion Patient's care discussed with his primary care provider. He recommends transfer to [facility] Where his urologist in order doctors. We do not have urology here. 02/18/19 06:22 Patient's care discussed with Dr. Back at [facility]. He accepts transfer. Patient is stable for transfer. - Vital Signs Vital signs: Temp Pulse Resp BP Pulse Ox 97.4 F 92 14 114/37 L 100 02/18/19 03:12 02/18/19 05:53 02/18/19 04:30 02/18/19 05:53 02/18/19 04:30 - Laboratory Result Diagrams: 02/18/19 04:18 02/18/19 04:18 Laboratory results interpreted by me: 02/18/19 02/18/19 02/18/19 03:15 04:18 04:18 RBC 2.34 L Hgb 5.9 L Hct 18.1 L MCV 77 L MCH 25.1 L RDW 18.4 H Lymph % (Auto) 12.4 L Sodium 132.7 L Glucose 124 H Creatine Kinase 35 L Total Protein 6.1 L Urine Protein >=500 H Urine Glucose (UA) 50 H Urine Ketones TRACE H Urine Blood MODERATE H Crossmatch 02/18/19 05:00 RBC Hgb Hct MCV MCH RDW Lymph % (Auto) Sodium Glucose Creatine Kinase Total Protein Urine Protein Urine Glucose (UA) Urine Ketones Urine Blood Crossmatch See Detail Critical Care Note - Critical Care Note Total time excluding time spent on procedures (mins): 30 Comments: Critical care time for management of severe anemia. Discharge - Discharge Clinical Impression: Severe anemia Hematuria Qualifiers: Hematuria type: unspecified type Qualified Code(s): R31.9 - Hematuria, unspeci fied Condition: Good Disposition: Tertiary-Other Referrals: AMAYA CHAVEZ MD [Primary Care Provider] - Follow up as needed
[2019-02-18] MEDS ORDERED: LORAZEPAM INJ 2 MG/1 ML VIAL IV ONE (07:09)
--- NOTE | 2019-02-18 10:53 | ER Document Report ---
Doctor's Note Notes: 02/18/19 10:42 I have evaluated this pt. and he is refusing transfer that has been previously set up to [facility]. They are "code yellow" and won't be able to take him today. I have spoken to Dr. Chan and he feels if the pt has urological F/U, he can go home and he will see in the office early next week. The pt. states he has a F/U appt with his urologist (Dr. Chun) in 3 days.
[2019-02-18 14:11] VITALS: BP 139/66
--- NOTE | 2019-02-19 22:08 | EKG REPORT ---
SEVERITY:- NORMAL ECG - SINUS RHYTHM : Confirmed by: Jm Kwok MD 19-Feb-2019 22:07:53
== END 2019-02-18 14:10 | disposition home or self-care (01) ==
LOC: ER 02:10
DX: D64.9 Anemia, unspecified (principal); R31.9 Hematuria, unspecified; R53.1 Weakness; Z85.51 Personal history of malignant neoplasm of bladder
CPT/HCPCS: 93005; 99284; 96361; 96374; 86900; 86901; 36415; 82553; 36430; 86850; 82550; 85025; 80053; 81001; 84484; 86920; 93010; P9016; J2060; J7050

== ENCOUNTER 2019-11-20 16:17 | Emergency (ER) | payer MEDICARE, MEDICAID ==
[2019-11-20] MEDS ORDERED: NORMAL SALINE 1000 ML 1,000 ML IV ONE (17:03)
--- NOTE | 2019-11-20 17:05 | ER Document Report ---
ED Medical Screen (RME) - General Chief Complaint: Urinary Problem Stated Complaint: BLOOD IN URINE Time Seen by Provider: 11/20/19 16:58 Primary Care Provider: AMAYA CHAVEZ MD [Primary Care Provider] - Follow up as needed Mode of Arrival: Ambulatory Information source: Patient Notes: 78-year-old male patient currently being treated for bladder cancer presenting to the emergency department concern for bleeding from his urethra and also passing blood clots. Patient reports he has had a transfusions in the past. He states he feels very faint and weak. He denies any fevers but reports chills. He has not any nausea or vomiting. He states he was post to have a procedure about a month ago however it was canceled because he did not have a ride to drive him home. He was seen by Dr. Chavez. Patient alert, oriented, answering to questions appropriately, no acute distress noted. I have greeted and performed a rapid initial assessment of this patient. A comprehensive ED assessment and evaluation of the patient, analysis of test results and completion of the medical decision making process will be conducted by additional ED providers. I have specifically instructed the patient or family members with the patient to immediately return to any nursing staff should anything change in the patient's condition or with their chief complaint. TRAVEL OUTSIDE OF THE [place] IN LAST 30 DAYS: No - Related Data Allergies/Adverse Reactions: No Known Allergies Allergy (Verified 11/20/19 16:58) Past Medical History - Social History Chew tobacco use (# tins/day): No Frequency of alcohol use: None Drug Abuse: None Family history: None - Past Medical History Cardiac Medical History: Denies: Hx Coronary Artery Disease, Hx Heart Attack, Hx Hypertension Pulmonary Medical History: Denies: Hx Asthma, Hx Bronchitis, Hx COPD, Hx Pneumonia Neurological Medical History: Denies: Hx Cerebrovascular Accident, Hx Seizures Renal/ Medical History: Denies: Hx Peritoneal Dialysis Musculoskeltal Medical History: Reports Hx Arthritis - shoulder, low back, Reports Hx Musculoskeletal Deformity, Reports Hx Musculoskeletal Trauma Skin Medical History: Reports Hx Psoriasis Psychiatric Medical History: Reports: Hx Depression Past Surgical History: Reports: Hx Cholecystectomy - Immunizations Immunizations up to date: No Hx Diphtheria, Pertussis, Tetanus Vaccination: Yes Physical Exam - Vital signs Vitals: Temp Pulse Resp BP Pulse Ox 98.4 F 80 16 173/75 H 100 11/20/19 16:21 11/20/19 16:21 11/20/19 16:21 11/20/19 16:21 11/20/19 16:21 Course - Vital Signs Vital signs: Temp Pulse Resp BP Pulse Ox 98.4 F 80 16 173/75 H 100 11/20/19 16:21 11/20/19 16:21 11/20/19 16:21 11/20/19 16:21 11/20/19 16:21 Doctor's Discharge - Discharge Referrals: AMAYA CHAVEZ MD [Primary Care Provider] - Follow up as needed
[2019-11-20 18:10] LABS: ABSOLUTE EOSINOPHILS # (AUTO) 0.1 10^3/uL (0.0-0.6); ABSOLUTE LYMPHOCYTES (AUTO) 0.8 10^3/uL (0.5-4.7); ABSOLUTE MONOCYTES (AUTO) 0.5 10^3/uL (0.1-1.4); ABSOLUTE NEUT (AUTO) 5.2 10^3/uL (1.7-8.2); BASOPHILS % (AUTO) 0.3 % (0-2); EOSINOPHILS % (AUTO) 0.8 % (0-6); HEMATOCRIT 41.2 % (37.9-51.0); LYMPHOCYTES % (AUTO) 12.8 % (13-45); MEAN CORPUSCULAR HGB CONC 33.9 g/dL (32.0-36.0); MEAN CORPUSCULAR VOLUME 88 fl (80-97); MONOCYTES % (AUTO) 7.3 % (3-13); PLATELET COUNT 137 10^3/uL (150-450); RED BLOOD COUNT 4.66 10^6/uL (4.35-5.55); RED CELL DISTRIBUTION WIDTH 13.7 % (11.5-14.0); SEGMENTED NEUTROPHILS % (AUTO) 78.8 % (42-78); TOTAL CELLS COUNTED % (AUTO) 100 %; WHITE BLOOD COUNT 6.6 10^3/uL (4.0-10.5)
[2019-11-20 18:22] LABS: APPEARANCE,URINE CLOUDY; BILIRUBIN,URINE NEGATIVE (NEGATIVE); COLOR,URINE RED; GLUCOSE, URINE 50 mg/dL (NEGATIVE); KETONES,URINE NEGATIVE (NEGATIVE); LEUKOCYTE ESTERASE,URINE TRACE (NEGATIVE); NITRITE,URINE NEGATIVE (NEGATIVE); PROTEIN,URINE 100 mg/dL (NEGATIVE); URINE SPECIFIC GRAVITY 1.018; UROBILINOGEN,URINE NEGATIVE mg/dL (<2.0)
[2019-11-20 18:30] LABS: ALBUMIN 4.2 g/dL (3.5-5.0); ALKALINE PHOSPHATASE 87 U/L (38-126); ANION GAP 9 (5-19); ASPARTATE AMINO TRANSFERASE 28 U/L (17-59); BILIRUBIN,TOTAL 0.5 mg/dL (0.2-1.3); BLOOD UREA NITROGEN 17 mg/dL (7-20); CALCIUM 9.4 mg/dL (8.4-10.2); CARBON DIOXIDE 26 mmol/L (22-30); CHLORIDE 105 mmol/L (98-107); GLUCOSE 114 mg/dL (75-110); POTASSIUM 3.9 mmol/L (3.6-5.0); TOTAL PROTEIN 7.3 g/dL (6.3-8.2)
[2019-11-20] MEDS ORDERED: NITROFURANTOIN MONOHYD/M-CRYST 100 MG CAPSULE PO ONE (20:32)
[2019-11-20 20:43] VITALS: BP 178/71
--- NOTE | 2019-11-21 05:39 | ER Document Report ---
Entered by BILLY HO SCRIBE 11/20/192028 Acting as scribe for:BHAVIN RIVAS IV, MD ED GI/ - General Chief Complaint: Urinary Problem Stated Complaint: BLOOD IN URINE Time Seen by Provider: 11/20/19 16:58 Primary Care Provider: AMAYA CHAVEZ MD [Primary Care Provider] - Follow up as needed Mode of Arrival: Ambulatory Information source: Patient Notes: This 78 year old male patient, currently undergoing treatment for bladder cancer presents to the ED today with complaints of hematuria for the past x2 weeks. Patient states that he has noticed bright red blood coming from his urethra and that he has been passing blood clots. He reports associated generalized weakness and chills, but denies fever, nausea, or vomiting. He notes that he has required transfusions in the past. He states that he was supposed to have a procedure x2 weeks ago for his bladder, but it was cancelled and is now rescheduled for 12/15/2019. TRAVEL OUTSIDE OF THE [place] IN LAST 30 DAYS: No - Related Data Allergies/Adverse Reactions: No Known Allergies Allergy (Verified 11/20/19 16:58) Past Medical History - General Information source: Patient - Social History Smoking Status: Never Smoker Cigarette use (# per day): No Chew tobacco use (# tins/day): No Smoking Education Provided: No Frequency of alcohol use: None Drug Abuse: None Lives with: Family Family History: Reviewed & Not Pertinent, Malignancy Patient has suicidal ideation: No Patient has homicidal ideation: No Musculoskeletal Medical History: Reports Hx Arthritis - shoulder, low back, Reports Hx Musculoskeletal Deformity, Reports Hx Musculoskeletal Trauma Skin Medical History: Reports Hx Psoriasis Psychiatric Medical History: Reports: Hx Depression Past Surgical History: Reports: Hx Cholecystectomy - Immunizations Immunizations up to date: No Hx Diphtheria, Pertussis, Tetanus Vaccination: Yes Review of Systems - Review of Systems Constitutional: See HPI, Chills, Weakness. denies: Fever EENT: No symptoms reported Cardiovascular: No symptoms reported Respiratory: No symptoms reported Gastrointestinal: See HPI. denies: Nausea, Vomiting Genitourinary: See HPI, Hematuria Male Genitourinary: No symptoms reported Musculoskeletal: No symptoms reported Skin: No symptoms reported Hematologic/Lymphatic: No symptoms reported Neurological/Psychological: No symptoms reported -: Yes All other systems reviewed and negative Physical Exam - Vital signs Vitals: Temp Pulse Resp BP Pulse Ox 98.4 F 80 16 173/75 H 100 11/20/19 16:21 11/20/19 16:21 11/20/19 16:21 11/20/19 16:21 11/20/19 16:21 Interpretation: Hypertensive - General General appearance: Alert, Other - Ambulating around room without difficulty. No signs of generalized weakness as stated in the HPI. Appears impatient stating that he has "family waiting for him." In distress: None - HEENT Head: Normocephalic, Atraumatic Eyes: Normal Pupils: PERRL - Respiratory Respiratory status: No respiratory distress Chest status: Nontender Breath sounds: Normal Chest palpation: Normal - Cardiovascular Rhythm: Regular Heart sounds: Normal auscultation Murmur: No Friction rub: No Gallop: None auscultated - Abdominal Inspection: Normal Distension: No distension Bowel sounds: Normal Tenderness: Nontender - Abdomen soft Organomegaly: No organomegaly - Back Back: Normal, Nontender - Extremities General upper extremity: Normal inspection General lower extremity: Normal inspection - Neurological Neuro grossly intact: Yes Orientation: AAOx4 [place] Coma Scale Eye Opening: Spontaneous [place] Coma Scale Verbal: Oriented [place] Coma Scale Motor: Obeys Commands [place] Coma Scale Total: 15 - Psychological Associated symptoms: Normal affect, Normal mood - Skin Skin Temperature: Warm Skin Moisture: Dry Skin Color: Normal Course - Re-evaluation Re-evalutation: 11/20/19 20:30 Results of ED MSE discussed with patient. All questions were answered prior to discharge. Emergency signs and symptoms, reasons to return to the emergency department discussed with patient. - Vital Signs Vital signs: Temp Pulse Resp BP Pulse Ox 98.4 F 80 16 173/75 H 100 11/20/19 16:21 11/20/19 16:21 11/20/19 16:21 11/20/19 16:21 11/20/19 16:21 - Laboratory Result Diagrams: 11/20/19 17:45 11/20/19 17:45 Laboratory results interpreted by me: 11/20/19 11/20/19 11/20/19 17:45 17:45 17:45 Plt Count 137 L Lymph % (Auto) 12.8 L Seg Neutrophils % 78.8 H Glucose 114 H Urine Protein 100 H Urine Glucose (UA) 50 H Urine Blood LARGE H Ur Leukocyte Esterase TRACE H Discharge - Discharge Clinical Impression: Hemorrhagic cystitis Condition: Good Disposition: HOME, SELF-CARE Additional Instructions: Return to the Emergency Department without delay if any worse. HOME CARE INSTRUCTIONS & INFORMATION: Thank you for choosing us for your medical needs. We hope you're satisfied with the care you received. After you leave, you must properly care for your problem and, at the same time, observe its progress. Any condition can change. Some illnesses can change rapidly over hours or days. If your condition worsens, return to the Emergency Department or see your physician promptly. ABOUT YOUR X-RAYS AND EKG'S: If you had an EKG or X-rays taken, they have been read by the Emergency Physician. The X-rays and EKG's will also be read by a Radiologist or Health Outcomes Liaison within 24 hours. If discrepancies are noted, you will be notified by telephone. Please be certain the ED has a correct telephone number & address where you can be reached. Also, realize that some fractures or abnormalities do not show up on initial X-rays. If your symptoms continue, see your physician. ABOUT YOUR LABORATORY TEST: If you had laboratory tests, the results have been reviewed by the Emergency Physician. Some test results (for example cultures) may not be available for several days. You will be contacted if any test result shows you need additional treatment. Please be certain the ED has a correct telephone number and address where you can be reached. ABOUT YOUR MEDICATIONS: You will receive instructions on how to take your medicine on the prescription label you receive. Additional information may be provided by the Pharmacy. If you have questions afterwards, call the ED for clarification or further instructions. Some prescribed medications may cause drowsiness. Do not perform tasks such as driving a car or operating machinery without consulting your Pharmacist. If you feel you need a refill of pain medication, your condition will need re-evaluation. Please do not call for a refill of any medication. ABOUT YOUR SIGNATURE: Signature of this document acknowledges to followin. Understanding that you received emergency treatment and that you may be released before al medical problems are known or treated. Please be certain the ED has a correct phone number & address where you can be reached. 2. Acknowledgement that you will arrange for follow-up care as recommended. 3. Authorization for the Emergency Physician to provide information to your follow-up Physician in order to maximize your care. AT ANY TIME, IF YOUR SYMPTOMS CHANGE SIGNIFICANTLY OR WORSEN OR YOU DEVELOP NEW SYMPTOMS, RETURN TO THE EMERGENCY DEPARTMENT IMMEDIATELY FOR RE-EVALUATION. OUR GOAL IS TO PROVIDE EXCELLENT MEDICAL CARE! WE HOPE THAT WE HAVE MET YOUR EXPECTATIONS DURING YOUR EMERGENCY DEPARTMENT VISIT AND THAT YOU FEEL YOU HAVE RECEIVED EXCELLENT CARE! Hematuria Hematuria, or blood in your urine, can be caused by minor medical problems, such as a bladder infection, or by more serious medical conditions, such as kidney stones or even tumors of the bladder or kidney. If the cause of the hematuria is known (such as a bladder infection) and can be treated, it may not need further evaluation. If the cause is not known, it will usually require further evaluation by a specialist, such as a urologist. In particular, unexplained hematuria in the older patient must be evaluated to rule out a serious condition, such as a bladder or kidney tumor. If the hematuria worsens or you are passing clots and then are unable to urinate, you should be re-evaluated. A catheter may need to be placed in the bladder to permit passage of urine. If you develop high fever, severe pain, or other new or worsening symptoms, return to the Emergency Department for re- evaluation. Urinary Tract Infection Your evaluation indicates that you have a urinary tract infection. This is due to germs growing in the bladder. This is a common problem. This infection usually responds quickly to antibiotics. Your antibiotic should be taken exactly as prescribed. Drink plenty of fluids -- three to four quarts a day. Occasionally, a bladder anesthetic will be prescribed to help stop the feeling of urgency until the antibiotic has a chance to clear the infection. This may cause your urine to be dark orange. Certain urine infections require a culture. If the doctor obtained a culture, the results will be back in two days. You should call to see if a change in treatment is needed. A repeat urinalysis after you finish treatment is often recommended. The physician will let you know if further testing is required. Call the doctor if you develop fever, chills, flank pain, inability to urinate, or blood in the urine. Prescriptions: Nitrofurantoin Monohyd/M-Cryst [Macrobid 100 mg Capsule] 100 mg PO BID 10 Days #20 cap Referrals: AMAYA CHAVEZ MD [Primary Care Provider] - Follow up as needed I personally performed the services described in the documentation, reviewed and edited the documentation which was dictated to the scribe in my presence, and it accurately records my words and actions.
== END 2019-11-20 20:45 | disposition home or self-care (01) ==
LOC: ER 16:17
DX: N30.91 Cystitis, unspecified with hematuria (principal); C67.9 Malignant neoplasm of bladder, unspecified; R53.1 Weakness
CPT/HCPCS: 99283; 96360; 86900; 86901; 36415; 87086; 86850; 85025; 87088; 80053; 81001; J7030; A9270; 87186; J8499

== ENCOUNTER 2019-12-31 09:27 | Emergency (ER) | payer MEDICARE, MEDICAID ==
--- NOTE | 2019-12-31 10:11 | RADIOLOGY REPORT (SQ) ---
EXAM DESCRIPTION: CHEST SINGLE VIEW IMAGES COMPLETED DATE/TIME: 12/31/2019 10:00 am REASON FOR STUDY: shortness of breath COMPARISON: 04/08/2016 EXAM PARAMETERS: NUMBER OF VIEWS: One view. TECHNIQUE: Single frontal radiographic view of the chest acquired. RADIATION DOSE: NA LIMITATIONS: None. FINDINGS: LUNGS AND PLEURA: There are increased interstitial markings throughout the lung bases bila terally. No focal consolidation. There may be a small right pleural effusion. No pneumothorax. MEDIASTINUM AND HILAR STRUCTURES: No masses. Contour normal. HEART AND VASCULAR STRUCTURES: Heart normal in size. Mild prominence of the pulmonary vascular struc tures. BONES: No acute findings. HARDWARE: None in the chest. OTHER: No other significant finding. IMPRESSION: Increased interstitial markings predominantly at the lung bases favored to represent mil d pulmonary edema. A superimposed infectious process would be difficult to exclude. Recommend radio graphic follow-up. TECHNICAL DOCUMENTATION: JOB ID: [id number] 2010 [email or web address]- All Rights Reserved Reading location - IP/workstation name: [email or web address]
[2019-12-31 10:21] LABS: ABSOLUTE EOSINOPHILS # (AUTO) 0.3 10^3/uL (0.0-0.6); ABSOLUTE LYMPHOCYTES (AUTO) 0.7 10^3/uL (0.5-4.7); ABSOLUTE MONOCYTES (AUTO) 0.4 10^3/uL (0.1-1.4); ABSOLUTE NEUT (AUTO) 4.4 10^3/uL (1.7-8.2); BASOPHILS % (AUTO) 0.8 % (0-2); EOSINOPHILS % (AUTO) 5.7 % (0-6); HEMATOCRIT 32.3 % (37.9-51.0); HEMOGLOBIN 10.8 g/dL (13.5-17.0); LYMPHOCYTES % (AUTO) 12.3 % (13-45); MEAN CORPUSCULAR HEMOGLOBIN 27.8 pg (27.0-33.4); MEAN CORPUSCULAR HGB CONC 33.5 g/dL (32.0-36.0); MEAN CORPUSCULAR VOLUME 83 fl (80-97); MONOCYTES % (AUTO) 7.4 % (3-13); PLATELET COUNT 229 10^3/uL (150-450); RED BLOOD COUNT 3.89 10^6/uL (4.35-5.55); RED CELL DISTRIBUTION WIDTH 14.1 % (11.5-14.0); SEGMENTED NEUTROPHILS % (AUTO) 73.8 % (42-78); TOTAL CELLS COUNTED % (AUTO) 100 %
[2019-12-31 10:38] LABS: ALBUMIN 3.1 g/dL (3.5-5.0); ALKALINE PHOSPHATASE 107 U/L (38-126); ASPARTATE AMINO TRANSFERASE 172 U/L (17-59); BILIRUBIN,TOTAL 0.4 mg/dL (0.2-1.3); BLOOD UREA NITROGEN 18 mg/dL (7-20); CALCIUM 8.8 mg/dL (8.4-10.2); CREATINE KINASE 25 U/L (55-170); GLUCOSE 116 mg/dL (75-110); POTASSIUM 4.1 mmol/L (3.6-5.0); TOTAL PROTEIN 6.4 g/dL (6.3-8.2)
[2019-12-31 10:43] LABS: CARBON DIOXIDE 29 mmol/L (22-30); CHLORIDE 104 mmol/L (98-107)
[2019-12-31 10:44] LABS: ANION GAP 3 (5-19)
[2019-12-31 10:48] LABS: CREATINE KINASE MB 0.91 ng/mL (<4.55); NT PRO BNP 95 pg/mL (<450)
[2019-12-31 10:49] LABS: TROPONIN I < 0.012 ng/mL
[2019-12-31 12:38] LABS: APPEARANCE,URINE CLOUDY; BILIRUBIN,URINE NEGATIVE (NEGATIVE); COLOR,URINE AMBER; GLUCOSE, URINE NEGATIVE (NEGATIVE); KETONES,URINE NEGATIVE (NEGATIVE); LEUKOCYTE ESTERASE,URINE LARGE (NEGATIVE); NITRITE,URINE POSITIVE (NEGATIVE); PROTEIN,URINE 100 mg/dL (NEGATIVE); UROBILINOGEN,URINE NEGATIVE mg/dL (<2.0)
--- NOTE | 2019-12-31 14:53 | RADIOLOGY REPORT (SQ) ---
EXAM DESCRIPTION: CTA CHEST IMAGES COMPLETED DATE/TIME: 12/31/2019 2:33 pm REASON FOR STUDY: shortness of breath COMPARISON: 03/13/[address] TECHNIQUE: CT scan of the chest performed using helical scanning technique with dynamic intravenous contrast injection. Images reviewed with lung, soft tissue and bone windows. Reconstructed coronal and sagittal MPR images reviewed. Additional 3 dimensional post-processing performed to develop Maximal Intensity Projection images (UT P). All images stored on PACS. All CT scanners at this facility use dose modulation, iterative reconstruction, and/or weight based d osing when appropriate to reduce radiation dose to as low as reasonably achievable (ALARA). [facility]: Dose Right [facility]: CareDose [facility]: Dose Right [facility]: Teradose 4D [facility]: UpTo CONTRAST TYPE AND DOSE: contrast/concentration: Isovue 350.00 mmol/ml; Total Contrast Delivered: 71. 0 ml; Total Saline Delivered: 80.0 ml Contrast bolus optimized for the pulmonary arteries. Not diagnostic for the aorta. RENAL FUNCTION: GFR > 60. RADIATION DOSE: CT Rad equipment meets quality standard of care and radiation dose reduction techniq ues were employed. CTDIvol: 13.2 - 16.3 mGy. DLP: 568 mGy-cm. . LIMITATIONS: None. FINDINGS: LUNGS AND PLEURA: No pneumothorax. Extensive interstitial thickening and nodularity throu ghout both lungs. There are some areas of confluent airspace disease present in both lower lobes. T here are areas suggestive of early fibrotic changes in the lung bases. Small right pleural effusion. AORTA AND GREAT VESSELS: No aneurysm. Contrast bolus not optimized for the aorta. HEART: No pericardial effusion. Moderate coronary artery calcifications. PULMONARY ARTERIES: No emboli visualized in the main pulmonary arteries or the segmental branches. HILAR AND MEDIASTINAL STRUCTURES: No identified masses or abnormal nodes. HARDWARE: None in the chest. UPPER ABDOMEN: No acute findings. Limited exam. THYROID AND OTHER SOFT TISSUES: No masses. No adenopathy. BONES: No acute finding. 3D MIPS: Confirm above findings. OTHER: No other significant finding. IMPRESSION: No emboli visualized in the main pulmonary arteries or the segmental branches.Extensive interstitial thickening and nodularity throughout both lungs. There are some areas of confluent airs pace disease present in both lower lobes. There are areas suggestive of early fibrotic changes in th e lung bases. Small right pleural effusion. COMMENT: Quality ID # [id number]: Final reports with documentation of one or more dose reduction techniques (e.g., Automated exposure control, adjustment of the mA and/or kV according to patient size, use of iterative reconstruction technique) TECHNICAL DOCUMENTATION: JOB ID: [id number] 2010 [employer]- All Rights Reserved Reading location - IP/workstation name: [email or web address]
--- NOTE | 2019-12-31 15:10 | ER Document Report ---
ED General - General Chief Complaint: Shortness Of Breath Stated Complaint: SHORT OF BREATH Time Seen by Provider: 12/31/19 11:46 Primary Care Provider: NICCI URIOSTEGUI MD [ACTIVE STAFF] - Follow up as needed AMAYA CHAVEZ MD [Primary Care Provider] - Follow up as needed PAPA VALDES MD [ACTIVE PROVISIONAL STAFF] - Follow up as needed Notes: 79-year-old male with past medical history of bladder cancer, hematuria, anemia and back pain presenting today with 3 weeks of shortness of breath. States that it has progressively gotten worse. States that he becomes short of breath when walking approximately 20 feet. States that this has been worsening in the last 3 weeks. He states that he woke up this morning and felt dizzy and short of breath so he called the squad. He denies any cough. He has no fever. Denies any cardiac history. He recently had surgery to remove cancer in his bladder last Thursday. But he states that he was discharged on Thursday. Was a smoker for years, stopped smoking at the age of 57. He denies any chest pain, nausea, vomiting, weakness, bloody stools, or dark tarry stools. Currently not short of breath or dizzy as he is laying in the hospital bed. TRAVEL OUTSIDE OF THE [place] IN LAST 30 DAYS: No - Related Data Allergies/Adverse Reactions: No Known Allergies Allergy (Verified 12/31/19 09:45) Past Medical History - Social History Smoking Status: Former Smoker Chew tobacco use (# tins/day): No Frequency of alcohol use: None Drug Abuse: Marijuana Family History: Reviewed & Not Pertinent, Malignancy - Past Medical History Cardiac Medical History: Denies: Hx Coronary Artery Disease, Hx Heart Attack, Hx Hypertension Pulmonary Medical History: Denies: Hx Asthma, Hx Bronchitis, Hx COPD, Hx Pneumonia Neurological Medical History: Denies: Hx Cerebrovascular Accident, Hx Seizures Renal/ Medical History: Denies: Hx Peritoneal Dialysis Musculoskeletal Medical History: Reports Hx Arthritis - shoulder, low back, Reports Hx Musculoskeletal Deformity, Reports Hx Musculoskeletal Trauma Skin Medical History: Reports Hx Psoriasis Psychiatric Medical History: Reports: Hx Depression Past Surgical History: Reports: Hx Cholecystectomy - Immunizations Immunizations up to date: No Hx Diphtheria, Pertussis, Tetanus Vaccination: Yes Review of Systems - Review of Systems Constitutional: No symptoms reported EENT: No symptoms reported Cardiovascular: No symptoms reported Respiratory: See HPI Gastrointestinal: No symptoms reported Genitourinary: No symptoms reported Male Genitourinary: No symptoms reported Musculoskeletal: No symptoms reported Skin: No symptoms reported Physical Exam - Vital signs Vitals: Temp Pulse Resp BP Pulse Ox 97.9 F 81 16 143/79 H 100 12/31/19 09:27 12/31/19 09:27 12/31/19 09:27 12/31/19 09:27 12/31/19 09:27 Interpretation: No: Bradycardic, Hypoxic, Tachypneic, Febrile - Notes Notes: Adult General: GENERAL: Alert, interacts well. No acute distress HEAD: Normocephalic, atraumatic EYES: Pupils equal, round and reactive to light. Extraocular movements intact. ENT: Airway patent. Nares patent. NECK: Full range of motion. Supple. Trachea midline. No lymphadenopathy. LUNGS: Expiratory wheeze in left upper quadrant, decreased breath sounds on right middle lung field. No respiratory distress. Nontender chest wall. HEART: Regular rate and rhythm. No murmurs, rubs or gallops. ABDOMEN: Soft, nontender. Nondistended. (-) Morse sign. Bowel sounds present in all 4 quadrants. No rebound, guarding or masses. GENITOURINARY: Deferred EXTREMITIES: Moves all 4 extremities spontaneously. No edema, normal radial and dorsal pedis pulses bilaterally. No cyanosis. BACK: normal distal neurovascular exam. Moves all extremities with full range of motion. NEUROLOGICAL: Alert and oriented x3. Normal speech. Strength 5/ 5 in all extremities. PSYCH: Normal affect, normal mood. SKIN: Warm, dry, normal turgor. No rashes or lesions noted. Course - Re-evaluation Re-evalutation: 12/31/19 16:09 Patients chest xray shows increased interstitial findings. As patient recently had surgery, I will CTA him. Patient is currently on room air. patient was walked and he states he felt short of breath after a few steps of walking but his O2 Sats remained above 97% and he became mildly tachycardia (HR did not increase above 105). His vitals are unremarkable. No reported symptoms of GI bleeding. His hemoglobin is 10.8 which is down from 2 months ago. His UA also shows possible infection but he reports no pain with urination or abdominal pain. Troponins have been negative. CTA shows extensive interstitial thickening and nodularity throughout both lungs. I do not believe there is an infection or underlying pneumonia as patient is afebrile and he has no elevated white count and is not tachycardic. I discussed case with Dr. Alexandre. She recommends the patient has close follow up with a inspector [employer] to obtain an echo and to follow up with cloth hand for interstitial lung disease. I discussed the findings of his work up with the patient. He continues to not have shortness of breath just laying in the bed. His vitals also remain within normal limits. He is agreeable to having close follow up with a [employer] and cloth hand. I informed him referrals will be on his discharge instructions. Recommend he also follow up with his primary care provider. I also discussed that if his symptoms worsen or he develops new symptoms he is to return to the emergency department for further evaluation. Patient acknowldegs and verbalizes understanding of instructions and plan. All questions answered. - Vital Signs Vital signs: Temp Pulse Resp BP Pulse Ox 97.9 F 81 19 128/66 H 100 12/31/19 09:45 12/31/19 09:27 12/31/19 16:01 12/31/19 16:01 12/31/19 16:01 - Laboratory Result Diagrams: 12/31/19 10:00 12/31/19 10:00 Laboratory results interpreted by me: 12/31/19 12/31/19 12/31/19 10:00 10:00 11:45 RBC 3.89 L Hgb 10.8 L Hct 32.3 L RDW 14.1 H Lymph % (Auto) 12.3 L Sodium 136.0 L Anion Gap 3 L Glucose 116 H AST 172 H ALT 154 H Creatine Kinase 25 L Albumin 3.1 L Urine Protein 100 H Urine Blood LARGE H Urine Nitrite POSITIVE H Ur Leukocyte Esterase LARGE H - EKG Interpretation by Me Additional EKG results interpreted by me: EKG shows normal sinus rhythm, HR of 91, pr interval of 164,qtc of 441 Discharge - Discharge Clinical Impression: Shortness of breath Condition: Stable Disposition: HOME, SELF-CARE Additional Instructions: The imaging of your chest has shown extensive interstitial thickening and nodu larity. Your ekg and heart enzymes are unremarkable. I recommend that you follow up with a inspector [employer] and cloth hand for your symptoms. Please also follow up with your primary care provider. Please return to the emergency department if you have worsening symptoms or the development of new symptoms. Prescriptions: Albuterol Sulfate [Ventolin Hfa 8 gm Mdi (1 Mdi/ER Disp)] 2 puff IH ASDIR PRN #1 inhaler PRN Reason: Referrals: AMAYA CHAVEZ MD [Primary Care Provider] - Follow up as needed NICCI URIOSTEGUI MD [ACTIVE STAFF] - Follow up as needed PAPA VALDES MD [ACTIVE PROVISIONAL STAFF] - Follow up as needed
[2019-12-31 16:48] VITALS: BP 128/66
--- NOTE | 2019-12-31 21:08 | EKG REPORT ---
SEVERITY:- NORMAL ECG - SINUS RHYTHM : Confirmed by: Yvonne Khan MD 31-Dec-2019 21:06:44
== END 2019-12-31 16:50 | disposition home or self-care (01) ==
LOC: ER 09:27
DX: R06.02 Shortness of breath (principal); R42 Dizziness and giddiness; R31.9 Hematuria, unspecified; Z85.51 Personal history of malignant neoplasm of bladder; Z87.891 Personal history of nicotine dependence; F12.10 Cannabis abuse, uncomplicated
CPT/HCPCS: 36415; 71045; 71275; 80053; 81001; 82550; 82553; 83880; 84484; 85025; 93005; 93010; 99285

== ENCOUNTER 2020-01-21 05:40 | Emergency (ER) | payer MEDICARE, MEDICAID ==
--- NOTE | 2020-01-21 08:50 | ER Document Report ---
ED GI/ - General Chief Complaint: Blood in Catheter Stated Complaint: CLOTS IN CATHETER Time Seen by Provider: 01/21/20 08:24 Primary Care Provider: JAMAAL CARRASQUILLO MD [NO LOCAL MD] - 01/23/20 AMAYA CHAVEZ MD [Primary Care Provider] - Follow up as needed Information source: Patient Notes: Patient presents complaining of blood leaking from around his Thao catheter. Patient has a history of bladder cancer and has been passing bloody urine for some time. Patient states that he is supposed to have surgery in about 2 weeks to help manage his bladder cancer. Patient denies any fever, abdominal pain or flank pain. TRAVEL OUTSIDE OF THE [place] IN LAST 30 DAYS: No - HPI Patient complains to provider of: Thao catheter problem. No: Abdominal pain, Vomiting Onset: This morning Timing/Duration: Gradual Quality of pain: No pain Associated symptoms: denies: Chills, Dysuria, Fever, Loss of appetite, Nausea, Urinary hesitancy, Urinary frequency, Vomiting Exacerbated by: Denies Relieved by: Denies Similar symptoms previously: No Recently seen / treated by doctor: Yes - Related Data Allergies/Adverse Reactions: No Known Allergies Allergy (Verified 12/31/19 09:45) Home Medications: ambien, gabapentin, tramadol, stool softners, flomax, zoloft Past Medical History - General Information source: Patient - Social History Smoking Status: Former Smoker Frequency of alcohol use: None Drug Abuse: None Lives with: Alone Family History: Reviewed & Not Pertinent, Malignancy Patient has homicidal ideation: No - Past Medical History Cardiac Medical History: Denies: Hx Coronary Artery Disease, Hx Heart Attack, Hx Hypertension Pulmonary Medical History: Denies: Hx Asthma, Hx Bronchitis, Hx COPD, Hx Pneumonia Neurological Medical History: Denies: Hx Cerebrovascular Accident, Hx Seizures Renal/ Medical History: Denies: Hx Peritoneal Dialysis Malignancy Medical History: Reports Other - Bladder cancer Musculoskeletal Medical History: Reports Hx Arthritis - shoulder, low back, Reports Hx Musculoskeletal Deformity, Reports Hx Musculoskeletal Trauma Skin Medical History: Reports Hx Psoriasis Psychiatric Medical History: Reports: Hx Depression Past Surgical History: Reports: Hx Cholecystectomy, Hx Urinary Tract Surgery - Stent to bladder tumor - Immunizations Immunizations up to date: No Hx Diphtheria, Pertussis, Tetanus Vaccination: Yes Review of Systems - Review of Systems Constitutional: No symptoms reported. denies: Fever, Recent illness EENT: No symptoms reported Cardiovascular: No symptoms reported. denies: Dizziness, Lightheaded Respiratory: No symptoms reported. denies: Cough, Short of breath Gastrointestinal: No symptoms reported. denies: Abdominal pain, Nausea, Vomiting Genitourinary: Other - Hematuria, blood leaking around Thao catheter. denies: Dysuria Male Genitourinary: No symptoms reported Musculoskeletal: No symptoms reported. denies: Back pain Skin: No symptoms reported Hematologic/Lymphatic: No symptoms reported Neurological/Psychological: No symptoms reported Physical Exam - Vital signs Vitals: Temp Pulse Resp BP Pulse Ox 97.6 F 95 16 131/71 H 99 01/21/20 06:10 01/21/20 06:10 01/21/20 06:10 01/21/20 06:10 01/21/20 06:10 - General General appearance: Appears well, Alert In distress: None - Respiratory Respiratory status: No respiratory distress Chest status: Nontender Breath sounds: Normal. No: Rales, Rhonchi, Stridor, Wheezing Chest palpation: Normal - Cardiovascular Rhythm: Regular Heart sounds: S1 appreciated, S2 appreciated Murmur: No - Abdominal Inspection: Normal Distension: No distension. No: Distended bladder Bowel sounds: Normal Tenderness: Nontender Organomegaly: No organomegaly - Genitourinary Inspection: Other - Three-way Thao catheter in place with friend colored, blood-tinged urine Tenderness: Nontender - Back Back: Normal, Nontender - Extremities General upper extremity: Normal inspection, Normal strength General lower extremity: Normal inspection, Normal strength - Neurological Neuro grossly intact: Yes Cognition: Normal Blair Coma Scale Eye Opening: Spontaneous Blair Coma Scale Verbal: Oriented [place] Coma Scale Motor: Obeys Commands [place] Coma Scale Total: 15 - Psychological Associated symptoms: Normal affect, Normal mood - Skin Skin Temperature: Warm Skin Moisture: Dry Skin Color: Normal Course - Re-evaluation Re-evalutation: 01/21/20 10:12 Patient with peach colored urine to Thao drainage bag, irrigation stopped at this time, will reevaluate. 01/21/20 13:04 call placed to [facility] for consultation with pt's urology group 01/21/20 13:[address] Herrmann at [facility] who states that patient does have a bladder tumor with a stent recently placed and hematuria would be expected. He does recommend having patient increase oral hydration to prevent dehydration. No additional recommendations at this time. Patient's H&H was discussed as well as his exam findings. 01/21/20 19:37 - Vital Signs Vital signs: Temp Pulse Resp BP Pulse Ox 98.1 F 78 17 128/86 H 99 01/21/20 14:24 01/21/20 14:24 01/21/20 14:24 01/21/20 14:24 01/21/20 14:24 - Laboratory Result Diagrams: 01/21/20 11:34 01/21/20 11:34 Laboratory results interpreted by me: 01/21/20 01/21/20 11:34 11:34 RBC 3.50 L Hgb 9.7 L Hct 29.0 L RDW 16.2 H Plt Count 126 L Total Protein 6.2 L Albumin 3.2 L Discharge - Discharge Clinical Impression: Hx of bladder cancer, Thao catheter in place Hematuria Qualifiers: Hematuria type: gross Qualified Code(s): R31.0 - Gross hematuria Condition: Stable Disposition: HOME, SELF-CARE Instructions: Thao Catheter Care ([facility]), Hematuria ([facility]) Additional Instructions: Return immediately for any new or worsening symptoms Followup with your primary care provider, call tomorrow to make a followup appointment Increase oral fluids and stay well-hydrated. Follow-up with your urologist, call Thursday to make a follow-up appointment. Referrals: AMAYA CHAVEZ MD [Primary Care Provider] - Follow up as needed JAMAAL CARRASQUILLO MD [NO LOCAL MD] - 01/23/20
[2020-01-21] MEDS ORDERED: MAGNESIUM HYDROXIDE SUSP 30 ML UDCUP PO ONE ×2 (10:11→13:00)
--- NOTE | 2020-01-21 11:15 | RADIOLOGY REPORT (SQ) ---
EXAM DESCRIPTION: KUB/ABDOMEN (SINGLE VIEW) IMAGES COMPLETED DATE/TIME: 01/21/2020 11:00 am REASON FOR STUDY: constipation COMPARISON: None. NUMBER OF VIEWS: One view. TECHNIQUE: Supine radiographic image of the abdomen acquired. LIMITATIONS: None. FINDINGS: BOWEL GAS PATTERN: Nonobstructive pattern. Large amount of stool in the:. CALCIFICATIONS: No suspicious calcifications. SOFT TISSUES: No gross mass or suggestion of organomegaly. HARDWARE: Right ureteral stent. BONES: No acute fracture. No worrisome bone lesions. OTHER: No other significant finding. IMPRESSION: NO RADIOGRAPHIC EVIDENCE FOR ACUTE ABDOMINAL DISEASE. TECHNICAL DOCUMENTATION: JOB ID: [id number] 2010 [employer]- All Rights Reserved Reading location - IP/workstation name: [email or web address]
[2020-01-21 11:46] LABS: ABSOLUTE BASOPHILS # (AUTO) 0.1 10^3/uL (0.0-0.2); ABSOLUTE LYMPHOCYTES (AUTO) 0.8 10^3/uL (0.5-4.7); ABSOLUTE MONOCYTES (AUTO) 0.6 10^3/uL (0.1-1.4); ABSOLUTE NEUT (AUTO) 3.9 10^3/uL (1.7-8.2); BASOPHILS % (AUTO) 0.9 % (0-2); EOSINOPHILS % (AUTO) 0.7 % (0-6); HEMOGLOBIN 9.7 g/dL (13.5-17.0); LYMPHOCYTES % (AUTO) 15.6 % (13-45); MEAN CORPUSCULAR HEMOGLOBIN 27.7 pg (27.0-33.4); MEAN CORPUSCULAR HGB CONC 33.5 g/dL (32.0-36.0); MEAN CORPUSCULAR VOLUME 83 fl (80-97); MONOCYTES % (AUTO) 10.9 % (3-13); PLATELET COUNT 126 10^3/uL (150-450); RED CELL DISTRIBUTION WIDTH 16.2 % (11.5-14.0); SEGMENTED NEUTROPHILS % (AUTO) 71.9 % (42-78); TOTAL CELLS COUNTED % (AUTO) 100 %; WHITE BLOOD COUNT 5.4 10^3/uL (4.0-10.5)
[2020-01-21 12:03] LABS: ALBUMIN 3.2 g/dL (3.5-5.0); ALKALINE PHOSPHATASE 71 U/L (38-126); ANION GAP 7 (5-19); ASPARTATE AMINO TRANSFERASE 29 U/L (17-59); BILIRUBIN,TOTAL 0.5 mg/dL (0.2-1.3); BLOOD UREA NITROGEN 13 mg/dL (7-20); CALCIUM 8.8 mg/dL (8.4-10.2); CARBON DIOXIDE 27 mmol/L (22-30); CHLORIDE 103 mmol/L (98-107); GLUCOSE 102 mg/dL (75-110); POTASSIUM 3.7 mmol/L (3.6-5.0); TOTAL PROTEIN 6.2 g/dL (6.3-8.2)
[2020-01-21 14:25] VITALS: BP 128/86
== END 2020-01-21 14:24 | disposition home or self-care (01) ==
LOC: ER 05:40
DX: C67.9 Malignant neoplasm of bladder, unspecified (principal); T83.031A Leakage of indwelling urethral catheter, initial encounter; Y84.6 Urinary catheterization as the cause of abnormal reaction of the patient, or of later complication, without mention of misadventure at the time of the procedure; R31.0 Gross hematuria; F32.9 Major depressive disorder, single episode, unspecified; Z79.899 Other long term (current) drug therapy; Z87.891 Personal history of nicotine dependence; Z96.0 Presence of urogenital implants
CPT/HCPCS: 99284; 36415; 87086; 85025; 87088; 80053; 87186; 74018; A9270; J3490

== ENCOUNTER 2020-01-22 19:41 | Emergency (ER) | payer MEDICARE, MEDICAID ==
[2020-01-22] MEDS ORDERED: ONDANSETRON HCL INJ/PF 4 MG/2 ML SDV IV ONE (20:31)
[2020-01-22] MEDS ORDERED: MORPHINE SULFATE 10 MG/ML INJ IV ONE (20:31)
--- NOTE | 2020-01-22 21:02 | ER Document Report ---
ED GI/ - General Chief Complaint: Testicular Swelling Stated Complaint: PENILE PAIN Time Seen by Provider: 01/22/20 20:25 Primary Care Provider: AMAYA CHAVEZ MD [Primary Care Provider] - Follow up tomorrow Notes: Patient is a 79-year-old male who comes emergency department for chief complaint of swelling to the left scrotum with pain to the left scrotum that he noticed over the past day. Patient was seen here 2 days ago and had bladder irrigation for heavy bleeding and clotting in his Thao catheter. 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 Chun urology in [place], he states that he is scheduled to have surgical removal of the cancer/bladder. Patient denies abdominal pain, fever/chills, nausea/vomiting, or any other complaints except the swelling/pain in his scrotum. He denies injury. He states he is on a blood thinner but cannot recall the name. TRAVEL OUTSIDE OF THE [place] IN LAST 30 DAYS: No - Related Data Allergies/Adverse Reactions: No Known Allergies Allergy (Verified 12/31/19 09:45) Past Medical History - General Information source: Patient - Social History Smoking Status: Former Smoker Frequency of alcohol use: None Drug Abuse: None Lives with: Family Family History: Reviewed & Not Pertinent, Malignancy Patient has homicidal ideation: No - Past Medical History Cardiac Medical History: Denies: Hx Coronary Artery Disease, Hx Heart Attack, Hx Hypertension Pulmonary Medical History: Denies: Hx Asthma, Hx Bronchitis, Hx COPD, Hx Pneumonia Neurological Medical History: Denies: Hx Cerebrovascular Accident, Hx Seizures Renal/ Medical History: Denies: Hx Peritoneal Dialysis Musculoskeletal Medical History: Reports Hx Arthritis - shoulder, low back, Reports Hx Musculoskeletal Deformity, Reports Hx Musculoskeletal Trauma Skin Medical History: Reports Hx Psoriasis Psychiatric Medical History: Reports: Hx Depression Past Surgical History: Reports: Hx Cholecystectomy, Hx Urinary Tract Surgery - Stent to bladder tumor - Immunizations Immunizations up to date: No Hx Diphtheria, Pertussis, Tetanus Vaccination: Yes Review of Systems - Review of Systems Constitutional: No symptoms reported EENT: No symptoms reported Cardiovascular: No symptoms reported Respiratory: No symptoms reported Gastrointestinal: No symptoms reported Genitourinary: See HPI Male Genitourinary: No symptoms reported Musculoskeletal: No symptoms reported Skin: No symptoms reported Hematologic/Lymphatic: No symptoms reported Neurological/Psychological: No symptoms reported Physical Exam - Vital signs Vitals: Temp Pulse Resp BP Pulse Ox 98.9 F 98 20 145/75 H 100 01/22/20 19:50 01/22/20 19:50 01/22/20 19:50 01/22/20 19:50 01/22/20 19:50 - Notes Notes: GENERAL: Alert, interacts well. No acute distress. HEAD: Normocephalic, atraumatic. EYES: Pupils equal, round, and reactive to light. Extraocular movements intact. ENT: Oral mucosa moist, tongue midline. Oropharynx unremarkable. Airway patent. NECK: Full range of motion. Supple. Trachea midline. No lymphadenopathy. LUNGS: Clear to auscultation bilaterally, no wheezes, rales, or rhonchi. No r espiratory distress. Non-tender chest wall. HEART: Regular rate and rhythm. No murmur ABDOMEN: Soft, non-tender. Non-distended. GENITOURINARY: There is a Thao catheter in place with small amount of dried blood on the Thao, shaft of the penis and head of the penis are not swollen or tender, right testicle and scrotum are normal, left testicle and scrotum appears swollen but not erythematous or severely tender. There is some blood in the Thao bag. Otherwise unremarkable. EXTREMITIES: Moves all 4 extremities spontaneously. No edema, normal radial and dorsalis pedis pulses bilaterally. No cyanosis. BACK: no cervical, thoracic, lumbar midline tenderness. No saddle anesthesia, normal distal neurovascular exam. Moves all extremities in full range of motion. NEUROLOGICAL: Alert and oriented x3. Normal speech. Cranial nerves II through XII grossly intact. Strength 5/5 in all extremities. PSYCH: Normal affect, normal mood. SKIN: Warm, dry, normal turgor. No rashes or lesions noted. Course - Re-evaluation Re-evalutation: Patient is alert, conversational, well-appearing. His only complaint is testicular swelling on the left side. This is swollen and somewhat tender when patient moves and on palpation but patient is nondistressed, there is no erythema, there is no evidence of abscess, there is no streaking with an area, nearby lymphadenopathy, or any other concerning findings. Patient has some blood in his leg bag but patient reports this is ongoing in the area appears to still be what draining well. He has no fever. CBC and chemistry are unremarkable. Hemoglobin is not significantly changed from prior. Urinalysis nonspecific because the previous one was worse and this will be cultured. Ultrasound showing cyst in the left scrotum and the epididymis area, possibly a spermatocele. No torsion, no abscess, no mass. I discussed this with patient. Patient states that he has a follow-up tomorrow with his provider, he is requesting something for pain, he states he is only been given tramadol to this point and now with his diagnosis of bladder, prostate cancer, and spermatocele he is requesting additional management. I did provide this for him along with stool softener, discussed precautions. Discussed return precautions as well. Patient states understanding and agreement. - Vital Signs Vital signs: Temp Pulse Resp BP Pulse Ox 98.9 F 89 17 151/70 H 99 01/22/20 22:42 01/22/20 22:42 01/22/20 22:42 01/22/20 22:42 01/22/20 22:42 - Laboratory Result Diagrams: 01/22/20 21:05 01/22/20 21:05 Laboratory results interpreted by me: 01/22/20 01/22/20 01/22/20 21:05 21:05 21:05 RBC 3.31 L Hgb 9.3 L Hct 27.4 L RDW 15.5 H Plt Count 127 L Lymph % (Auto) 8.5 L Seg Neutrophils % 81.1 H Sodium 131.0 L Potassium 3.4 L Chloride 97 L Calcium 8.3 L Total Protein 5.9 L Albumin 3.0 L Urine Protein 100 H Urine Glucose (UA) 50 H Urine Blood MODERATE H Urine Nitrite POSITIVE H Ur Leukocyte Esterase SMALL H Discharge - Discharge Clinical Impression: Testicular pain, left, Scrotal swelling Condition: Stable Disposition: HOME, SELF-CARE Additional Instructions: Your evaluation is consistent with a cyst on the left side, this appears to be a spermatocele as we discussed. You have been provided with pain medication to take only if needed, if you do take this take a stool softener as well. Call your urologist tomorrow and follow-up with your primary care provider. Return if you worsen including severe worsening pain, developing redness or increased swelling, vomiting, fever, or any other concerning symptoms. Prescriptions: Polyethylene Glycol 3350 [Miralax Powder 17 gm/Packet] 1 packet PO DAILY PRN #1 pkg PRN Reason: Oxycodone HCl/Acetaminophen [Percocet 5-325 mg Tablet] 1 tab PO TID PRN #15 tab PRN Reason: Referrals: AMAYA CHAVEZ MD [Primary Care Provider] - Follow up tomorrow
[2020-01-22 21:19] LABS: ABSOLUTE LYMPHOCYTES (AUTO) 0.6 10^3/uL (0.5-4.7); ABSOLUTE MONOCYTES (AUTO) 0.7 10^3/uL (0.1-1.4); ABSOLUTE NEUT (AUTO) 6.2 10^3/uL (1.7-8.2); BASOPHILS % (AUTO) 0.5 % (0-2); EOSINOPHILS % (AUTO) 0.2 % (0-6); HEMATOCRIT 27.4 % (37.9-51.0); HEMOGLOBIN 9.3 g/dL (13.5-17.0); LYMPHOCYTES % (AUTO) 8.5 % (13-45); MEAN CORPUSCULAR HGB CONC 33.7 g/dL (32.0-36.0); MEAN CORPUSCULAR VOLUME 83 fl (80-97); MONOCYTES % (AUTO) 9.7 % (3-13); PLATELET COUNT 127 10^3/uL (150-450); RED BLOOD COUNT 3.31 10^6/uL (4.35-5.55); RED CELL DISTRIBUTION WIDTH 15.5 % (11.5-14.0); SEGMENTED NEUTROPHILS % (AUTO) 81.1 % (42-78); TOTAL CELLS COUNTED % (AUTO) 100 %; WHITE BLOOD COUNT 7.6 10^3/uL (4.0-10.5)
[2020-01-22 21:25] LABS: BILIRUBIN,URINE NEGATIVE (NEGATIVE); COLOR,URINE RED; GLUCOSE, URINE 50 mg/dL (NEGATIVE); KETONES,URINE NEGATIVE (NEGATIVE); LEUKOCYTE ESTERASE,URINE SMALL (NEGATIVE); NITRITE,URINE POSITIVE (NEGATIVE); PROTEIN,URINE 100 mg/dL (NEGATIVE); URINE SPECIFIC GRAVITY 1.012; UROBILINOGEN,URINE NEGATIVE mg/dL (<2.0)
[2020-01-22 21:27] LABS: APPEARANCE,URINE TURBID
[2020-01-22 21:40] LABS: ALKALINE PHOSPHATASE 73 U/L (38-126); ANION GAP 7 (5-19); ASPARTATE AMINO TRANSFERASE 27 U/L (17-59); BILIRUBIN,DIRECT 0.1 mg/dL (0.0-0.4); BILIRUBIN,TOTAL 0.6 mg/dL (0.2-1.3); BLOOD UREA NITROGEN 11 mg/dL (7-20); CALCIUM 8.3 mg/dL (8.4-10.2); CARBON DIOXIDE 27 mmol/L (22-30); CHLORIDE 97 mmol/L (98-107); GLUCOSE 105 mg/dL (75-110); POTASSIUM 3.4 mmol/L (3.6-5.0); TOTAL PROTEIN 5.9 g/dL (6.3-8.2)
--- NOTE | 2020-01-22 22:04 | RADIOLOGY REPORT (SQ) ---
EXAM DESCRIPTION: US SCROTUM COMPLETED DATE/TME: 01/22/2020 20:30 CLINICAL HISTORY: 79 years, Male, left scrotal swelling/pain COMPARISON: None. TECHNIQUE: Transverse and longitudinal sonographic images of the testes LIMITATIONS: None. FINDINGS: The right testicle measures 4.3 x 2.6 x 2.4 cm, the left 3.5 x 3.0 x 2.9 cm. Negative for intratesticular mass. Doppler and spectral analysis with color flow shows arterial and venous flow to each testicle. There is a 1.7 x 1.4 cm left epididymal cyst has a somewhat complex appearance possibly reflecting small spermatocele. Small bilateral hydroceles, slightly complex on the left. IMPRESSION: Complex appearing left epididymal cyst possibly reflecting spermatocele. Small bilateral hydroceles. copyright 2011 [employer]- All Rights Reserved
[2020-01-22] MEDS ORDERED: HYDROCODONE/ACETAMINOPHEN 5-325 MG (6 TAB/ER DISP) PO PRN (22:25)
[2020-01-22] MEDS ORDERED: HYDROCODONE/ACETAMINOPHEN 5-325 MG TABLET PO ONE (22:25)
[2020-01-22] MEDS ORDERED: OXYCODONE-ACETAMINOPHEN 5-325 MG TABLET PO ONE (22:26)
[2020-01-22 22:45] VITALS: BP 151/70
== END 2020-01-22 23:07 | disposition home or self-care (01) ==
LOC: ER 19:41
DX: N43.3 Hydrocele, unspecified (principal); N50.3 Cyst of epididymis; N50.812 Left testicular pain; C67.9 Malignant neoplasm of bladder, unspecified; C79.82 Secondary malignant neoplasm of genital organs; Z87.891 Personal history of nicotine dependence; Z79.899 Other long term (current) drug therapy
CPT/HCPCS: 99285; 96374; 96375; 36415; 87086; 85025; 87088; 80053; 81001; 87186; 76870; 93976; J2270; A9270 ×2; J2405

== ENCOUNTER 2020-02-17 18:32 | Emergency (ER) | payer MEDICARE, MEDICAID ==
[2020-02-17 18:47] VITALS: BP 170/77
--- NOTE | 2020-02-17 19:12 | ER Document Report ---
ED Medical Screen (RME) - General Chief Complaint: Testicular Pain Stated Complaint: TESTICULAR PAIN Time Seen by Provider: 02/17/20 19:09 Primary Care Provider: AMAYA CHAVEZ MD [Primary Care Provider] - Follow up as needed Mode of Arrival: Wheelchair Information source: Patient Notes: 79-year-old male presented to ED for complaint of left testicle and groin pain for the last for 5 hours. He states he was in here recently for an infection in the bladder he also has bladder cancer. He states he is supposed to be scheduled for removal of the bladder but it has not been scheduled yet. He states he has been waiting for it for a while. He states for the last several hours his pain is been extreme on the left side and the left testicle. We will get blood urine and ultrasound of the groin area and have him seen by another provider. He states he took 2 of his tramadol about 2:00 and has not had anything since. He states he is taking the tramadol 3 times a day. He has had this pain with the taken the tramadol. I have ordered him 1 Percocet as well as his blood urine and ultrasound. I have greeted and performed a rapid initial assessment of this patient. A comprehensive ED assessment and evaluation of the patient, analysis of test results and completion of medical decision making process will be conducted by an additional ED providers. TRAVEL OUTSIDE OF THE [place] IN LAST 30 DAYS: No - Related Data Allergies/Adverse Reactions: No Known Allergies Allergy (Verified 12/31/19 09:45) Past Medical History - Social History Frequency of alcohol use: None Drug Abuse: None Family history: None - Past Medical History Cardiac Medical History: Denies: Hx Coronary Artery Disease, Hx Heart Attack, Hx Hypertension Pulmonary Medical History: Denies: Hx Asthma, Hx Bronchitis, Hx COPD, Hx Pneumonia Neurological Medical History: Denies: Hx Cerebrovascular Accident, Hx Seizures Renal/ Medical History: Denies: Hx Peritoneal Dialysis Musculoskeltal Medical History: Reports Hx Arthritis - shoulder, low back, Reports Hx Musculoskeletal Deformity, Reports Hx Musculoskeletal Trauma Skin Medical History: Reports Hx Psoriasis Psychiatric Medical History: Reports: Hx Depression Past Surgical History: Reports: Hx Cholecystectomy, Hx Urinary Tract Surgery - Stent to bladder tumor - Immunizations Immunizations up to date: No Hx Diphtheria, Pertussis, Tetanus Vaccination: Yes Physical Exam - Vital signs Vitals: Temp Pulse Resp BP Pulse Ox 97.9 F 77 16 170/77 H 99 02/17/20 18:46 02/17/20 18:46 02/17/20 18:46 02/17/20 18:46 02/17/20 18:46 Course - Vital Signs Vital signs: Temp Pulse Resp BP Pulse Ox 97.9 F 77 16 170/77 H 99 02/17/20 18:46 02/17/20 18:46 02/17/20 18:46 02/17/20 18:46 02/17/20 18:46 Doctor's Discharge - Discharge Referrals: AMAYA CHAVEZ MD [Primary Care Provider] - Follow up as needed
[2020-02-17] MEDS ORDERED: OXYCODONE-ACETAMINOPHEN 5-325 MG TABLET PO ONE (19:15)
[2020-02-17 19:51] LABS: ABSOLUTE EOSINOPHILS # (AUTO) 0.1 10^3/uL (0.0-0.6); ABSOLUTE LYMPHOCYTES (AUTO) 0.5 10^3/uL (0.5-4.7); ABSOLUTE MONOCYTES (AUTO) 0.5 10^3/uL (0.1-1.4); ABSOLUTE NEUT (AUTO) 4.1 10^3/uL (1.7-8.2); BASOPHILS % (AUTO) 0.5 % (0-2); EOSINOPHILS % (AUTO) 1.6 % (0-6); HEMATOCRIT 32.3 % (37.9-51.0); HEMOGLOBIN 10.6 g/dL (13.5-17.0); LYMPHOCYTES % (AUTO) 9.9 % (13-45); MEAN CORPUSCULAR HEMOGLOBIN 26.2 pg (27.0-33.4); MEAN CORPUSCULAR HGB CONC 32.7 g/dL (32.0-36.0); MEAN CORPUSCULAR VOLUME 80 fl (80-97); MONOCYTES % (AUTO) 10.2 % (3-13); PLATELET COUNT 168 10^3/uL (150-450); RED BLOOD COUNT 4.03 10^6/uL (4.35-5.55); RED CELL DISTRIBUTION WIDTH 15.8 % (11.5-14.0); SEGMENTED NEUTROPHILS % (AUTO) 77.8 % (42-78); TOTAL CELLS COUNTED % (AUTO) 100 %; WHITE BLOOD COUNT 5.3 10^3/uL (4.0-10.5)
[2020-02-17 19:53] LABS: APPEARANCE,URINE TURBID; BILIRUBIN,URINE NEGATIVE (NEGATIVE); COLOR,URINE AMBER; GLUCOSE, URINE NEGATIVE (NEGATIVE); KETONES,URINE NEGATIVE (NEGATIVE); LEUKOCYTE ESTERASE,URINE LARGE (NEGATIVE); NITRITE,URINE POSITIVE (NEGATIVE); PROTEIN,URINE 100 mg/dL (NEGATIVE); URINE SPECIFIC GRAVITY 1.009; UROBILINOGEN,URINE NEGATIVE mg/dL (<2.0)
[2020-02-17 20:01] LABS: ALKALINE PHOSPHATASE 103 U/L (38-126); ASPARTATE AMINO TRANSFERASE 35 U/L (17-59); CARBON DIOXIDE 26 mmol/L (22-30)
[2020-02-17 20:03] LABS: ANION GAP 9 (5-19); BILIRUBIN,DIRECT 0.3 mg/dL (0.0-0.4); BILIRUBIN,TOTAL 0.4 mg/dL (0.2-1.3); BLOOD UREA NITROGEN 22 mg/dL (7-20); CALCIUM 9.7 mg/dL (8.4-10.2); CHLORIDE 104 mmol/L (98-107); GLUCOSE 128 mg/dL (75-110); POTASSIUM 4.6 mmol/L (3.6-5.0)
--- NOTE | 2020-02-17 20:27 | RADIOLOGY REPORT (SQ) ---
EXAM DESCRIPTION: Scrotal ultrasound. CLINICAL HISTORY: 79 years Male; Pain to the left testicle and groin TECHNIQUE: Gaffney-scale, color, and spectral Doppler images were obtained of the testes and scrotum. COMPARISON: Scrotal ultrasound 01/22/2020 FINDINGS: Right testicle: The testicle measures 3.7 x 7.4 x 1.9 cm. The echotexture is mildly heterogeneous but improved when compared to the previous exam. Blood flow is normal. Epididymis measures 0.9 x 1.0 x 1.0 cm and is heterogeneous. There is a small hydrocele.. Left testicle: The testicle measures 3.3 x 3.2 x 1.8 cm and is heterogeneous echotexture which is improved when compared to the previous exam. The epididymis also is heterogeneous measuring 0.9 x 1.1 x 1.3 cm. Blood flow is symmetric with the right testicle. The tail of the epididymis appears prominent and measures 1.2 x 1.1 x 0.9 cm and has calcifications. Trace hydrocele. Other: Negative IMPRESSION: Overall improved appearance of the testicles and epididymis bilaterally. No torsion. Vascularity is now normal. There is prominence of the tail of the left epididymis which may represent some residual inflammation.
== END 2020-02-17 22:53 | disposition left against medical advice (07) ==
LOC: ER 18:32
DX: N50.812 Left testicular pain (principal); R10.30 Lower abdominal pain, unspecified; C67.9 Malignant neoplasm of bladder, unspecified; Z79.899 Other long term (current) drug therapy; Z53.20 Procedure and treatment not carried out because of patient's decision for unspecified reasons
CPT/HCPCS: 99281; 36415; 87086; 85025; 87088; 80053; 81001; 87186; 76870; 93976; A9270

== ENCOUNTER 2020-02-18 07:15 | Emergency (ER) | payer MEDICARE, MEDICAID ==
[2020-02-18 07:21] VITALS: BP 172/69
--- NOTE | 2020-02-18 08:14 | ER Document Report ---
ED General - General Chief Complaint: Testicular Pain Stated Complaint: TESTICULAR PAIN Time Seen by Provider: 02/18/20 08:14 Primary Care Provider: JAMAAL CARRASQUILLO MD [NO LOCAL MD] - Follow up in 3-5 days AMAYA CHAVEZ MD [Primary Care Provider] - Follow up in 3-5 days TRAVEL OUTSIDE OF THE [place] IN LAST 30 DAYS: No - HPI Notes: 79-year-old male with a history of bladder cancer who follows with Dr. Carrasquillo in [place] who his urologist, is having bladder surgery in a month presents emergency room with complaints of having testicular pain to his left testes that started the other day. Patient does have a Thao catheter. Patient came to the emergency room last night for same exact pain, did have a ultrasound done and a urinalysis done, did show the tail of his epididymis did show epididymitis which is much improved from his last ultrasound. Urinalysis does show a UTI, patient is fully cathetered due to his bladder cancer. Patient denies any trauma to his testes, denies any drainage from his penis. Denies being sexually active. Has not tried any [id number] medications. Patient states he left last night because he was sick of bleeding. Denies fevers, chills, chest pain,palpitations, shortness of breath, dyspnea, nausea, vomiting, diarrhea, abdominal pain, hematuria,blurred vision, double vision, loss of vision, speech changes, LH, dizziness, syncope, headaches, wheezing, ST, URI, neck pain, weakness, bowel or bladder dysfunction, saddle anesthesia, numbness or tingling in bilateral upper or lower extremities equally, muscle paralysis, weakness in bilateral upper or lower extremities equally or rash. Denies IV drug use. MEDICATIONS: I agree with the patient medications as charted by the RN. ALLERGIES: I agree with the allergies as charted by the RN. PAST MEDICAL HISTORY/PAST SURGICAL HISTORY: Reviewed and agree as charted by RN. SOCIAL HISTORY: Reviewed and agree as charted by RN. FAMILY HISTORY: No significant familial comorbid conditions directly related to patient complaint EXAM: Reviewed vital signs as charted by RN. REVIEW OF SYSTEMS:reviewed vital signs by RN CONSTITUTIONAL : Denies fever, chills, or sweats. Denies recent illness. EENT: Denies eye, ear, throat, or mouth pain or symptoms. Denies nasal or sinus congestion or discharge. Denies throat, tongue, or mouth swelling or difficulty swallowing. CARDIOVASCULAR: Denies chest pain. Denies palpitations or racing or irregular heart beat. Denies ankle edema. RESPIRATORY: Denies cough, cold, or chest congestion. Denies shortness of breath, difficulty breathing, or wheezing. GASTROINTESTINAL: Denies abdominal pain or distention. Denies nausea, vomiting, or diarrhea. Denies blood in vomitus, stools, or per rectum. Denies black, tarry stools. Denies constipation. GENITOURINARY: Denies difficulty urinating, painful urination, burning, frequency, blood in urine, or discharge. Reports left testicular pain MUSCULOSKELETAL: Denies back or neck pain or stiffness. Denies joint pain or swelling. SKIN: Denies rash, lesions or sores. HEMATOLOGIC : Denies easy bruising or bleeding. LYMPHATIC: Denies swollen, enlarged glands. NEUROLOGICAL: Denies confusion or altered mental status. Denies passing out or loss of consciousness. Denies dizziness or lightheadedness. Denies headache. Denies weakness or paralysis or loss of use of either side. Denies problems with gait or speech. Denies sensory loss, numbness, or tingling. Denies seizures. PSYCHIATRIC: Denies anxiety or stress. Denies depression, suicidal ideation, o r homicidal ideation. ALL OTHER SYSTEMS REVIEWED AND NEGATIVE. Dictation was performed using [employer] voice recognition software PHYSICAL EXAMINATION: GENERAL: Well-appearing, well-nourished and in no acute distress. HEAD: Atraumatic, normocephalic. EYES: Pupils equal round and reactive to light, extraocular movements intact, sclera anicteric, conjunctiva are normal. ENT: Nares patent, oropharynx clear without exudates. Moist mucous membranes. NECK: Normal range of motion, supple without lymphadenopathy LUNGS: Breath sounds clear to auscultation bilaterally and equal. No wheezes rales or rhonchi. HEART: Regular rate and rhythm without murmurs ABDOMEN: Soft, nontender, nondistended abdomen. No guarding, no rebound. No masses appreciated. ; circumcised male. No urethral discharge. left Testicle is mildly tender posteriorly. [place] of the testicle was normal. Both testicles descended. cremasteric reflex is normal. Noted Thao catheter in urethra Musculoskeletal: Normal range of motion, no pitting or edema. No cyanosis. NEUROLOGICAL: Cranial nerves grossly intact. Normal speech, normal gait. Normal sensory, motor exams PSYCH: Normal mood, normal affect. SKIN: Warm, Dry, normal turgor, no rashes or lesions noted. - Related Data Allergies/Adverse Reactions: No Known Allergies Allergy (Verified 12/31/19 09:45) Past Medical History - General Information source: Patient - Social History Smoking Status: Unknown if Ever Smoked Family History: Reviewed & Not Pertinent, Malignancy - Past Medical History Cardiac Medical History: Denies: Hx Coronary Artery Disease, Hx Heart Attack, Hx Hypertension Pulmonary Medical History: Denies: Hx Asthma, Hx Bronchitis, Hx COPD, Hx Pneumonia Neurological Medical History: Denies: Hx Cerebrovascular Accident, Hx Seizures Renal/ Medical History: Denies: Hx Peritoneal Dialysis Musculoskeletal Medical History: Reports Hx Arthritis - shoulder, low back, Reports Hx Musculoskeletal Deformity, Reports Hx Musculoskeletal Trauma Skin Medical History: Reports Hx Psoriasis Psychiatric Medical History: Reports: Hx Depression Past Surgical History: Reports: Hx Cholecystectomy, Hx Urinary Tract Surgery - Stent to bladder tumor - Immunizations Immunizations up to date: No Hx Diphtheria, Pertussis, Tetanus Vaccination: Yes Physical Exam - Vital signs Vitals: Temp Pulse Resp BP Pulse Ox 98.7 F 83 16 172/69 H 98 02/18/20 07:19 02/18/20 07:19 02/18/20 07:19 02/18/20 07:19 02/18/20 07:19 Course - Re-evaluation Re-evalutation: 02/18/20 09:12 Afebrile slightly hypertensive with patient does have a history of hypertension no no distress. Patient denies any changes in his testicular pain since 13 hours ago from he last had his ultrasound completed. Ultrasound states that the appearance of his testes does seem improved since the last ultrasound. Ultrasound negative for torsion, blood flow to both testes bilaterally. urinalysis does show the patient has a UTI, the tail of the epididymitis shows epididymitis with trace hydrocele. Will treat patient on oral course of doxycycline twice a day for 10 days and advised to follow-up with his urologist and a primary care provider for further evaluation. Patient states he came today for his ultrasound and urinalysis results. Advised to take antibiotics with food. Advised to elevate testes with jockstrap. If this symptoms become worse to return to the emergency room immediately. After performing a Medical Screening Examination, I estimate there is LOW risk for ACUTE APPENDICITIS, BOWEL OBSTRUCTION, ACUTE CHOLECYSTITIS, PERFORATED DIVERTICULITIS, INCARCERATED HERNIA, PANCREATITIS, TESTICULAR TORSION or PERFORATED ULCER, thus I consider the discharge disposition reasonable. Also, there is no evidence or peritonitis, sepsis, or toxicity. I have reevaluated this patient multiple times and no significant life threatening changes are noted. The patient and I have discussed the diagnosis and risks, and we agree with discharging home with close follow-up with the understanding that symptoms and presentations can change. We also discussed returning to the Emergency Department immediately if new or worsening symptoms occur. We have discussed the symptoms which are most concerning (e.g., bloody stool, fever, changing or worsening pain, intractable vomiting - standard verbal up date) that necessitate immediate return. 02/18/20 15:32 - Vital Signs Vital signs: Temp Pulse Resp BP Pulse Ox 98.7 F 83 16 172/69 H 98 02/18/20 07:19 02/18/20 07:19 02/18/20 07:19 02/18/20 07:19 02/18/20 07:19 Discharge - Discharge Clinical Impression: UTI (urinary tract infection), Left epididymitis Condition: Stable Disposition: HOME, SELF-CARE Instructions: Doxycycline ([facility]), Epididymitis ([facility]), Oral Narcotic Medication ([facility]), Urinary Tract Infection ([facility]) Additional Instructions: Epididymitis You have epididymitis. This is an inflammation of the organ just behind the testicle, called the epididymis. It can be due to infection in the bladder or prostate. Many cases are simply inflammation and are not caused by germs. Epididymitis often develops after heavy lifting or vigorous exercise. Antibiotics and antiinflammatory medication are often prescribed. Elevation of the scrotum with a jock-strap or tight briefs will help with the pain. Pain medication may be required. Either cold packs or warm sitz baths can help with the pain -- ask your doctor which he recommends for your case. It may take 10 to 14 days until the pain is gone. Avoid heavy lifting during this time. Call the doctor or go to the hospital if you develop fever, increasing pain, or severe swelling, or if you fail to improve as expected. Return immediately for any new or worsening symptoms. Follow up with primary care provider, call tomorrow to make followup appointment. Please follow-up with urologist within the next 3 to 5 days as well as her primary care provider. Please do not drive, drink or operate machinery while taking medication because sedation or impairment of cognitive function. Return immediately for any new or worsening symptoms. Follow up with primary care provider, call tomorrow to make followup appointment. Prescriptions: Doxycycline Monohydrate 100 mg PO BID #20 tablet Referrals: JAMAAL CARRASQUILLO MD [NO LOCAL MD] - Follow up in 3-5 days AMAYA CHAVEZ MD [Primary Care Provider] - Follow up in 3-5 days
[2020-02-18] MEDS ORDERED: HYDROCODONE/ACETAMINOPHEN 5-325 MG (6 TAB/ER DISP) PO PRN (09:07)
== END 2020-02-18 10:03 | disposition home or self-care (01) ==
LOC: ER 07:15
DX: T83.511A Infection and inflammatory reaction due to indwelling urethral catheter, initial encounter (principal); N39.0 Urinary tract infection, site not specified; N45.1 Epididymitis; N50.812 Left testicular pain; Y84.6 Urinary catheterization as the cause of abnormal reaction of the patient, or of later complication, without mention of misadventure at the time of the procedure; Z85.51 Personal history of malignant neoplasm of bladder
CPT/HCPCS: 99283; A9270

== ENCOUNTER 2020-03-07 01:16 | Emergency (ER) | payer MEDICARE, MEDICAID | END 2020-03-07 02:20 | disposition left against medical advice (07) | LOC: ER 01:16 | DX: Z53.21 Procedure and treatment not carried out due to patient leaving prior to being seen by health care provider (principal) ==

== ENCOUNTER 2020-03-22 20:31 | Emergency (ER) | payer MEDICARE, MEDICAID ==
[2020-03-22] MEDS ORDERED: OXYCODONE-ACETAMINOPHEN 5-325 MG TABLET PO ONE (21:12)
--- NOTE | 2020-03-22 21:50 | ER Document Report ---
ED General - General Chief Complaint: Post Surgical Pain Stated Complaint: POST OP PAIN Time Seen by Provider: 03/22/20 21:19 Primary Care Provider: AMAYA CHAVEZ MD [Primary Care Provider] - Follow up as needed Mode of Arrival: Stretcher Information source: Patient Notes: Patient is a 79-year-old male who comes in today from the rehab facility for postoperative pain. He recently had his bladder removed and he had a urostomy placed secondary to the cancer. He has been doing well. No complications or concerns about the surgery itself. Says his pain is been well managed in the hospital. He was discharged home to the rehabilitation facility. Apparently his medication has not arrived to the facility. When the facility was called to inquire when his meds would arrive, they indicated that the truck normally comes between midnight and 3 AM. Patient called 911 to be brought to the hospital to have his pain managed. He does not have any fevers. He is not vomiting. His lines are all functioning well. TRAVEL OUTSIDE OF THE [place] IN LAST 30 DAYS: No - Related Data Allergies/Adverse Reactions: No Known Allergies Allergy (Verified 03/22/20 20:57) Past Medical History - Social History Smoking Status: Never Smoker Chew tobacco use (# tins/day): No Frequency of alcohol use: None Drug Abuse: None Family History: Reviewed & Not Pertinent, Malignancy Patient has homicidal ideation: No - Past Medical History Cardiac Medical History: Denies: Hx Coronary Artery Disease, Hx Heart Attack, Hx Hypertension Pulmonary Medical History: Denies: Hx Asthma, Hx Bronchitis, Hx COPD, Hx Pneumonia Neurological Medical History: Denies: Hx Cerebrovascular Accident, Hx Seizures Renal/ Medical History: Denies: Hx Peritoneal Dialysis Musculoskeletal Medical History: Reports Hx Arthritis - shoulder, low back, Reports Hx Musculoskeletal Deformity, Reports Hx Musculoskeletal Trauma Skin Medical History: Reports Hx Psoriasis Psychiatric Medical History: Reports: Hx Depression Past Surgical History: Reports: Hx Cholecystectomy, Hx Urinary Tract Surgery - Stent to bladder tumor - Immunizations Immunizations up to date: No Hx Diphtheria, Pertussis, Tetanus Vaccination: Yes Review of Systems - Review of Systems Notes: Constitutional: No fevers. No chills. EENT: No eye redness. No eye pain. No ear pain. No sore throat. Cardiovascular: No chest pain. No palpitations. Respiratory: No cough. No shortness of breath. No respiratory distress. Gastrointestinal: No abdominal pain. No nausea, vomiting, or diarrhea. + Postoperative lower abdominal pain Genitourinary: Atraumatic. No lesions. No pain. No discharge. Musculoskeletal: Atraumatic. No swelling. No deformities. Skin: No rash or lesions. Lymphatic: No swollen lymph nodes. Neurologic: No headache. No syncope. Psychiatric: No suicidal or homicidal ideation. Physical Exam - Vital signs Vitals: Temp 98.7 F 03/22/20 20:32 - Notes Notes: General: Well-developed, well-nourished. In no acute distress. Non-toxic appearing. Cardiac: Well-perfused. Regular rate and rhythm. No murmurs, rubs, or gallops. Pulmonary: No respiratory distress. No cyanosis. Bilateral lung fiels are clear to auscultation. Abdominal: Abdomen is examined. There is a jejunostomy as well as a urostomy tube placed. The surgical sites are healing well. No erythema or pus or bleeding. Abdomen is soft. Bowel sounds present all 4 quadrants. HEENT: Head is atraumatic. Conjunctivae not reddened. No tearing. PERRL. EOMI. Orbits atraumatic. No periorbital swelling or erythema. Oropharynx is without erythema, swelling, or exudates. Neck: Supple. No adenopathy. No meningismus. Dermatologic: Warm with good turgor. No rash. Atraumatic. Chest: Atraumatic. No chest wall tenderness to palpation. Musculoskeletal: Moves all extremities well. No range of motion deficits. no muscular or joint tenderness. No paraspinal muscle tenderness. no midline spinal tenderness or step-off. Genitourinary: Examination deferred Neurologic: No gross neurologic deficits. Psychiatric: Normal mood. Course - Re-evaluation Re-evalutation: 03/22/20 21:49 Patient was given a single dose of Percocet here just a few minutes ago. Seems to be starting to feel a little bit better. I think what we will do is go ahead and give him an additional 5 mg of [place] before sending him back to the rehab facility. We will send him home with [place] sent home pack with instructions 1 tablet by mouth every 4 hours as needed. I anticipate the patient's regular meds will have arrived even before these happen to run out. - Vital Signs Vital signs: Temp Pulse Resp BP Pulse Ox 98.7 F 93 24 H 151/65 H 100 03/22/20 20:42 03/22/20 20:42 03/22/20 20:42 03/22/20 20:42 03/22/20 20:42 Discharge - Discharge Clinical Impression: Postoperative pain Condition: Good Disposition: REHAB FACILITY Instructions: Oral Narcotic Medication ([facility]) Additional Instructions: Please allow Mr. Gutiérrez to have 1 tablet of [place] 5/325 every 4 hours as needed for moderate to severe pain. This medication may be discontinued as soon as the patient's regularly prescribed medications arrive. Referrals: AMAYA CHAVEZ MD [Primary Care Provider] - Follow up as needed
[2020-03-22] MEDS ORDERED: HYDROCODONE/ACETAMINOPHEN 5-325 MG (6 TAB/ER DISP) PO PRN (21:52)
[2020-03-22] MEDS ORDERED: HYDROCODONE/ACETAMINOPHEN 5-325 MG TABLET PO ONE (21:52)
[2020-03-22 22:54] VITALS: BP 152/77
== END 2020-03-22 22:56 ==
LOC: ER 20:31
DX: G89.18 Other acute postprocedural pain (principal); R10.30 Lower abdominal pain, unspecified; Z90.6 Acquired absence of other parts of urinary tract; Z93.6 Other artificial openings of urinary tract status; Z93.4 Other artificial openings of gastrointestinal tract status
CPT/HCPCS: 99283; A9270 ×3

== ENCOUNTER 2020-03-23 16:29 | Emergency (ER) | payer MEDICARE, MEDICAID ==
[2020-03-23] MEDS ORDERED: ONDANSETRON 4 MG TAB.RAPDIS PO ONE (16:53)
--- NOTE | 2020-03-23 16:55 | ER Document Report ---
ED Medical Screen (RME) - General Chief Complaint: Urinary Problem Stated Complaint: URINATION PROBLEMS Time Seen by Provider: 03/23/20 16:46 Primary Care Provider: AMAYA CHAVEZ MD [Primary Care Provider] - Follow up as needed Information source: Patient Notes: Patient presents complaining of lower abdominal pain. Patient states that he had surgery on his bladder for bladder cancer 6 days ago. Patient states that he signed himself out of the rehab facility and he was here last night and left as well. Patient states he is concerned he may have infection. Patient reports that he had a drain that is not functioning properly at this time. Patient reports nausea. Patient denies any fever. I have greeted and performed a rapid initial assessment of this patient. A comprehensive ED assessment and evaluation of the patient, analysis of test results and completion of the medical decision making process will be conducted by additional ED providers. TRAVEL OUTSIDE OF THE [place] IN LAST 30 DAYS: No - Related Data Allergies/Adverse Reactions: No Known Allergies Allergy (Verified 03/22/20 20:57) Past Medical History - Social History Family history: None - Past Medical History Cardiac Medical History: Denies: Hx Coronary Artery Disease, Hx Heart Attack, Hx Hypertension Pulmonary Medical History: Denies: Hx Asthma, Hx Bronchitis, Hx COPD, Hx Pneumonia Neurological Medical History: Denies: Hx Cerebrovascular Accident, Hx Seizures Renal/ Medical History: Denies: Hx Peritoneal Dialysis Musculoskeltal Medical History: Reports Hx Arthritis - shoulder, low back, Reports Hx Musculoskeletal Deformity, Reports Hx Musculoskeletal Trauma Skin Medical History: Reports Hx Psoriasis Psychiatric Medical History: Reports: Hx Depression Past Surgical History: Reports: Hx Cholecystectomy, Hx Urinary Tract Surgery - Stent to bladder tumor - Immunizations Immunizations up to date: No Hx Diphtheria, Pertussis, Tetanus Vaccination: Yes Physical Exam - Vital signs Vitals: Temp Pulse Resp BP Pulse Ox 98.0 F 115 H 16 147/96 H 99 03/23/20 16:35 03/23/20 16:35 03/23/20 16:35 03/23/20 16:35 03/23/20 16:35 - Abdominal Tenderness: Tender - Lower abdominal tenderness Course - Vital Signs Vital signs: Temp Pulse Resp BP Pulse Ox 98.0 F 115 H 16 147/96 H 99 03/23/20 16:35 03/23/20 16:35 03/23/20 16:35 03/23/20 16:35 03/23/20 16:35 Doctor's Discharge - Discharge Referrals: AMAYA CHAVEZ MD [Primary Care Provider] - Follow up as needed
--- NOTE | 2020-03-23 17:25 | RADIOLOGY REPORT (SQ) ---
EXAM DESCRIPTION: KUB/ABDOMEN (SINGLE VIEW) IMAGES COMPLETED DATE/TIME: 03/23/2020 5:11 pm REASON FOR STUDY: abd pain COMPARISON: 01/21/2020 NUMBER OF VIEWS: One view. TECHNIQUE: Supine radiographic image of the abdomen acquired. LIMITATIONS: None. FINDINGS: BOWEL GAS PATTERN: Normal bowel gas pattern. No dilated loops. CALCIFICATIONS: No suspicious calcifications. SOFT TISSUES: No gross mass or suggestion of organomegaly. HARDWARE: Multiple catheters present. At least 1 ureteral stent catheters present. Proximal and dis hair in the right renal pelvis. It is unclear the location of the distally and which is in the left u pper quadrant. An additional catheter is noted in the right lower quadrant as well as a large strain is catheter. BONES: Extensive degenerative changes. OTHER: No other significant finding. IMPRESSION: No radiographic evidence for acute abdominal disease. Multiple catheters present in are un the patient. Exact course is unclear other than a ureteral sten t on the right with the tip location unclear TECHNICAL DOCUMENTATION: JOB ID: [id number] 2010 [employer]- All Rights Reserved Reading location - IP/workstation name: [email or web address]
[2020-03-23 17:46] LABS: HEMATOCRIT 26.8 % (37.9-51.0); HEMOGLOBIN 8.7 g/dL (13.5-17.0); MEAN CORPUSCULAR HEMOGLOBIN 25.1 pg (27.0-33.4); MEAN CORPUSCULAR HGB CONC 32.6 g/dL (32.0-36.0); MEAN CORPUSCULAR VOLUME 77 fl (80-97); PLATELET COUNT 314 10^3/uL (150-450); RED BLOOD COUNT 3.48 10^6/uL (4.35-5.55); RED CELL DISTRIBUTION WIDTH 16.7 % (11.5-14.0); WHITE BLOOD COUNT 12.5 10^3/uL (4.0-10.5)
[2020-03-23 17:56] LABS: ALBUMIN 2.8 g/dL (3.5-5.0); ALKALINE PHOSPHATASE 82 U/L (38-126); ANION GAP 7 (5-19); ASPARTATE AMINO TRANSFERASE 28 U/L (17-59); BILIRUBIN,DIRECT 0.3 mg/dL (0.0-0.4); BILIRUBIN,TOTAL 0.5 mg/dL (0.2-1.3); BLOOD UREA NITROGEN 12 mg/dL (7-20); CALCIUM 8.8 mg/dL (8.4-10.2); CARBON DIOXIDE 25 mmol/L (22-30); CHLORIDE 104 mmol/L (98-107); GLUCOSE 152 mg/dL (75-110); POTASSIUM 4.2 mmol/L (3.6-5.0); TOTAL PROTEIN 5.5 g/dL (6.3-8.2)
[2020-03-23 18:12] LABS: ABSOLUTE LYMPHOCYTES# (MANUAL) 0.3 10^3/uL (0.5-4.7); ABSOLUTE MONOCYTES # (MANUAL) 0.8 10^3/uL (0.1-1.4); BASOPHILS % (MANUAL) 0 % (0-2); EOSINOPHILS % (MANUAL) 1 % (0-6); LYMPHOCYTES % (MANUAL) 2 % (13-45); MONOCYTES % (MANUAL) 6 % (3-13); SEGMENTED NEUTROPHILS % (MAN) 91 % (42-78); TOTAL CELLS COUNTED 100
[2020-03-23 18:13] LABS: ANISOCYTOSIS 1+; PLATELET COMMENT ADEQUATE
[2020-03-23 18:37] LABS: APPEARANCE,URINE CLOUDY; BILIRUBIN,URINE NEGATIVE (NEGATIVE); GLUCOSE, URINE NEGATIVE (NEGATIVE); KETONES,URINE NEGATIVE (NEGATIVE); LEUKOCYTE ESTERASE,URINE MODERATE (NEGATIVE); NITRITE,URINE NEGATIVE (NEGATIVE); PROTEIN,URINE 100 mg/dL (NEGATIVE); URINE SPECIFIC GRAVITY 1.019; UROBILINOGEN,URINE NEGATIVE mg/dL (<2.0)
[2020-03-23 18:38] LABS: COLOR,URINE YELLOW
--- NOTE | 2020-03-23 18:53 | ER Document Report ---
Entered by CHAD REYES SCRIBE 03/23/20 1520 Acting as scribe for:JACLYN BRADY DO ED General - General Chief Complaint: Urinary Problem Stated Complaint: URINATION PROBLEMS Time Seen by Provider: 03/23/20 16:46 Primary Care Provider: AMAYA CHAVEZ MD [Primary Care Provider] - Follow up as needed Information source: Patient, [facility] Records Notes: This 79 year old male patient presents to the emergency department today with complaints of post op abdominal pain. Patient states his bladder was removed around x6 days ago at [facility] due to bladder cancer and reports a urostomy. Patient states he has a follow up appointment at [facility] in x6 days on 03/29. Patient states he was discharged to [facility] assisted living yesterday from [facility] and came to the ED yesterday by EMS because "they wouldn't give him his pain meds". Per [facility] records, this was due to his medications not arriving on time to the facility. Patient states he signed out of [facility] today because he needs more pain medication. TRAVEL OUTSIDE OF THE [place] IN LAST 30 DAYS: No - Related Data Allergies/Adverse Reactions: No Known Allergies Allergy (Verified 03/22/20 20:57) Past Medical History - General Information source: Patient, [facility] Records - Social History Smoking Status: Former Smoker Cigarette use (# per day): No Family History: Reviewed & Not Pertinent, Malignancy Malignancy Medical History: Reports Other - Bladder Cancer Musculoskeletal Medical History: Reports Hx Arthritis - shoulder, low back, Reports Hx Musculoskeletal Deformity, Reports Hx Musculoskeletal Trauma Skin Medical History: Reports Hx Psoriasis Psychiatric Medical History: Reports: Hx Depression Past Surgical History: Reports: Hx Cholecystectomy, Hx Urinary Tract Surgery - Stent to bladder tumor, Hx Urostomy - Immunizations Immunizations up to date: No Hx Diphtheria, Pertussis, Tetanus Vaccination: Yes Review of Systems - Review of Systems Constitutional: No symptoms reported EENT: No symptoms reported Cardiovascular: No symptoms reported Respiratory: No symptoms reported Gastrointestinal: See HPI, Abdominal pain - post op Genitourinary: See HPI Male Genitourinary: No symptoms reported Musculoskeletal: No symptoms reported Skin: No symptoms reported Hematologic/Lymphatic: No symptoms reported Neurological/Psychological: No symptoms reported -: Yes All other systems reviewed and negative Physical Exam - Vital signs Vitals: Temp Pulse Resp BP Pulse Ox 98.0 F 115 H 16 147/96 H 99 03/23/20 16:35 03/23/20 16:35 03/23/20 16:35 03/23/20 16:35 03/23/20 16:35 - General General appearance: Appears well, Alert - HEENT Head: Normocephalic, Atraumatic Eyes: Normal Pupils: PERRL Mucous membranes: Dry - Respiratory Respiratory status: No respiratory distress Chest status: Nontender Breath sounds: Normal Chest palpation: Normal - Cardiovascular Rhythm: Regular Heart sounds: Normal auscultation Murmur: No - Abdominal Distension: No distension Bowel sounds: Normal Notes: x10 cm packed midline incision. Urostomy tube in the RLQ and another small tube in the LLQ. - Extremities General upper extremity: Normal inspection, Normal ROM General lower extremity: Normal ROM, Other - Trace peripheral edema bilaterally. - Neurological Neuro grossly intact: Yes Cognition: Normal Orientation: AAOx4 Blair Coma Scale Eye Opening: Spontaneous [place] Coma Scale Verbal: Oriented Blair Coma Scale Motor: Obeys Commands Blair Coma Scale Total: 15 Speech: Normal Sensory: Normal - Psychological Associated symptoms: Normal affect, Normal mood - Skin Skin Temperature: Warm Skin Moisture: Dry Skin Color: Normal Course - Re-evaluation Re-evalutation: 03/23/20 23:09 MDM 79 year old male is post op form bladder surgery for bladder cancer. He had a urostomy placed and left [facility] after less than 24 hours there. He lives alone and can not care for himself at home well so he came here. He tells me of post op pain, but while telling me of this he is dozing off. He has taken 5 of his 6 norcos since leaving the ED yesterday. It appears to me this gentleman needs at least short term placement for rehab and to ensure follow up for his urologic procedure. I do not see an acute medical issue that necessitates a dmission at this time. - Vital Signs Vital signs: Temp Pulse Resp BP Pulse Ox 98.2 F 75 14 136/74 H 99 03/23/20 21:20 03/23/20 21:20 03/23/20 21:20 03/23/20 21:20 03/23/20 21:20 - Laboratory Result Diagrams: 03/23/20 17:00 03/23/20 17:00 Laboratory results interpreted by me: 03/23/20 03/23/20 03/23/20 17:00 17:00 18:04 WBC 12.5 H RBC 3.48 L Hgb 8.7 L Hct 26.8 L MCV 77 L MCH 25.1 L RDW 16.7 H Seg Neuts % (Manual) 91 H Lymphocytes % (Manual) 2 L Abs Neuts (Manual) 11.4 H Abs Lymphs (Manual) 0.3 L Sodium 136.3 L Glucose 152 H Total Protein 5.5 L Albumin 2.8 L Urine Protein 100 H Urine Blood LARGE H Ur Leukocyte Esterase MODERATE H Discharge - Discharge Clinical Impression: Weakness, Post-operative pain Condition: Stable Disposition: OTHER Referrals: AMAYA CHAVEZ MD [Primary Care Provider] - Follow up as needed I personally performed the services described in the documentation, reviewed and edited the documentation which was dictated to the scribe in my presence, and it accurately records my words and actions.
[2020-03-23] MEDS ORDERED: CEPHALEXIN 500 MG CAPSULE PO ONE (19:56)
[2020-03-24] MEDS ORDERED: ALBUTEROL SULFATE HFA (90 MCG/PUFF) 8 GM MDI IH PRN (00:17)
[2020-03-24] MEDS: HYDROCODONE/ACETAMINOPHEN 5-325 MG TABLET PO PRN ×3 (06:42→19:54)
[2020-03-24] MEDS: SERTRALINE HCL 50 MG TABLET PO SCH (12:30)
[2020-03-24] MEDS: GABAPENTIN 300 MG CAPSULE PO SCH ×3 (12:30→19:54)
[2020-03-24] MEDS: ENOXAPARIN SODIUM INJ 40 MG/0.4 ML DISP.SYRIN SUBCUT SCH (12:30)
[2020-03-24] MEDS: MULTIVITAMIN TABLET PO SCH (12:31)
[2020-03-24] MEDS: SENNOSIDES/DOCUSATE 8.6-50 MG 1 EACH TABLET PO SCH ×2 (12:31→19:54)
--- NOTE | 2020-03-24 17:16 | ER Document Report ---
Doctor's Note Notes: 03/24/20 17:12 Patient is a social hold, apparently transferred to [facility] from [facility] 03/23/2020. He had bladder cancer and surgery with urostomy tubes. He apparently has a wound on the abdominal wall which according to staff was supposed to have a wound VAC. He signed himself out of the fa cility, he was unhappy with the level of service and felt he was not getting his pain medicines quick enough. Today, wet-to-dry dressing is applied to the wound site. A wound care consult will be obtained. The patient is resting quietly has no specific complaints and at this time has no disposition plan. nutrition services aide consult will be obtained to assist in a final disposition. Presently he is receiving Percocet and Neurontin for pain control.
[2020-03-24] MEDS: ZOLPIDEM TARTRATE 5 MG TABLET PO SCH (22:49)
[2020-03-25] MEDS: HYDROCODONE/ACETAMINOPHEN 5-325 MG TABLET PO PRN ×4 (02:46→21:02)
[2020-03-25] MEDS: ENOXAPARIN SODIUM INJ 40 MG/0.4 ML DISP.SYRIN SUBCUT SCH (10:36)
[2020-03-25] MEDS: SENNOSIDES/DOCUSATE 8.6-50 MG 1 EACH TABLET PO SCH ×2 (10:37→17:12)
[2020-03-25] MEDS: GABAPENTIN 300 MG CAPSULE PO SCH ×3 (10:37→17:12)
[2020-03-25] MEDS: SERTRALINE HCL 50 MG TABLET PO SCH (10:37)
[2020-03-25] MEDS: MULTIVITAMIN TABLET PO SCH (10:37)
--- NOTE | 2020-03-25 13:51 | ER Document Report ---
Entered by ABENA MURGUIA SCRIBE 03/25/20 1053 Acting as scribe for:DHEERAJ SUMNER MD Doctor's Note Notes: 03/25/20 10:57 Patient was awoken. Vital signs are stable. Patient has no complaints. Requesting the nurse help him find his phone battery charger tester. Patient has eaten this morning and had a bowel movement. Wound is dressed and dressing is white without drainage. Urostomy draining yellow urine. 03/25/20 14:47 Wound dressing removed. There is a large canyon open wound to abdomen. There is granulation tissue present. There is no drainage or malodorous discharge from the wound. Measure 22cm long and 12 cm wide. There is a tube that tunnels in the abdominal wall draining minimal amount of a pastel pink color liquid. 03/25/20 15:19 Call placed to [facility] where the patient was seen initially. [facility] states when he left [facility] he took his wound vac off and left it at [facility], he then called [facility] and told him he would need home health but then showed up here shortly after. [facility] reports this patient does not need to be transferred there and they add that he was at [facility] less than 24 hours because he "did not need to be there". 03/25/20 20:30 Addendum information I obtained from violent discharge summary that Mr. Black was discharged with so that we could follow the guidelines of his wound care as instructed by these instructions on discharge. I discussed with one of the care team members of the urology service at [facility] and of course patient was discharged on the because he no longer met with needed inpatient care was discharged to a assisted in which he only resided there for less than a day before leaving AGAINST MEDICAL ADVICE then he ends up in the emergency department here the next day. Patient is on a social hold waiting and pending for a another assisted placement meanwhile patient is supposed to be on a wound VAC which she left behind at the other assisted he left. Patient is currently now receiving wet-to-dry dressings and his usual medications. Patient has a wound care consult pending at this time and I understand he will be seen in the wound care team tomorrow. I discussed case with Dr. Franklin, the on-call surgical is and his opinion was that patient does not to be admitted does not need admission to the hospital and wound care in his usual medications is pretty much what he should be receiving. h Hopefully patient will find a a new assisted residence soon. I personally performed the services described in the documentation, reviewed and edited the documentation which was dictated to the scribe in my presence, and it accurately records my words and actions.
[2020-03-25 15:11] LABS: ABSOLUTE LYMPHOCYTES (AUTO) 0.9 10^3/uL (0.5-4.7); ABSOLUTE NEUT (AUTO) 7.6 10^3/uL (1.7-8.2); BASOPHILS % (AUTO) 0.8 % (0-2); EOSINOPHILS % (AUTO) 2.1 % (0-6); HEMATOCRIT 23.7 % (37.9-51.0); LYMPHOCYTES % (AUTO) 9.3 % (13-45); MEAN CORPUSCULAR HEMOGLOBIN 25.9 pg (27.0-33.4); MEAN CORPUSCULAR HGB CONC 33.5 g/dL (32.0-36.0); MEAN CORPUSCULAR VOLUME 77 fl (80-97); MONOCYTES % (AUTO) 6.7 % (3-13); PLATELET COUNT 270 10^3/uL (150-450); RED BLOOD COUNT 3.06 10^6/uL (4.35-5.55); RED CELL DISTRIBUTION WIDTH 17.1 % (11.5-14.0); SEGMENTED NEUTROPHILS % (AUTO) 81.1 % (42-78); TOTAL CELLS COUNTED % (AUTO) 100 %; WHITE BLOOD COUNT 9.4 10^3/uL (4.0-10.5)
[2020-03-25 15:12] LABS: ABSOLUTE BASOPHILS # (AUTO) 0.1 10^3/uL (0.0-0.2); ABSOLUTE EOSINOPHILS # (AUTO) 0.2 10^3/uL (0.0-0.6); ABSOLUTE MONOCYTES (AUTO) 0.6 10^3/uL (0.1-1.4)
[2020-03-25 15:15] LABS: APPEARANCE,URINE SLIGHTLY-CLOUDY; BILIRUBIN,URINE NEGATIVE (NEGATIVE); COLOR,URINE YELLOW; GLUCOSE, URINE NEGATIVE (NEGATIVE); KETONES,URINE NEGATIVE (NEGATIVE); LEUKOCYTE ESTERASE,URINE LARGE (NEGATIVE); NITRITE,URINE POSITIVE (NEGATIVE); PROTEIN,URINE 100 mg/dL (NEGATIVE); URINE SPECIFIC GRAVITY 1.011; UROBILINOGEN,URINE NEGATIVE mg/dL (<2.0)
[2020-03-25 15:28] LABS: ALBUMIN 2.5 g/dL (3.5-5.0); ALKALINE PHOSPHATASE 81 U/L (38-126); ANION GAP 7 (5-19); ASPARTATE AMINO TRANSFERASE 21 U/L (17-59); BILIRUBIN,DIRECT 0.3 mg/dL (0.0-0.4); BILIRUBIN,TOTAL 0.4 mg/dL (0.2-1.3); BLOOD UREA NITROGEN 12 mg/dL (7-20); CALCIUM 8.4 mg/dL (8.4-10.2); CARBON DIOXIDE 27 mmol/L (22-30); CHLORIDE 104 mmol/L (98-107); GLUCOSE 105 mg/dL (75-110); POTASSIUM 3.5 mmol/L (3.6-5.0); TOTAL PROTEIN 4.9 g/dL (6.3-8.2)
[2020-03-25 15:34] LABS: HEMOGLOBIN 7.9 g/dL (13.5-17.0)
[2020-03-25] MEDS: ZOLPIDEM TARTRATE 5 MG TABLET PO SCH (21:41)
[2020-03-26 02:18] LABS: APPEARANCE,URINE CLOUDY; BILIRUBIN,URINE NEGATIVE (NEGATIVE); COLOR,URINE YELLOW; GLUCOSE, URINE NEGATIVE (NEGATIVE); KETONES,URINE NEGATIVE (NEGATIVE); LEUKOCYTE ESTERASE,URINE LARGE (NEGATIVE); NITRITE,URINE POSITIVE (NEGATIVE); PROTEIN,URINE 100 mg/dL (NEGATIVE); URINE SPECIFIC GRAVITY 1.015; UROBILINOGEN,URINE NEGATIVE mg/dL (<2.0)
[2020-03-26] MEDS: HYDROCODONE/ACETAMINOPHEN 5-325 MG TABLET PO PRN ×3 (03:05→20:31)
[2020-03-26 06:42] LABS: HEMATOCRIT 27.3 % (37.9-51.0); HEMOGLOBIN 9.2 g/dL (13.5-17.0); MEAN CORPUSCULAR HEMOGLOBIN 26.2 pg (27.0-33.4); MEAN CORPUSCULAR HGB CONC 33.7 g/dL (32.0-36.0); MEAN CORPUSCULAR VOLUME 78 fl (80-97); PLATELET COUNT 284 10^3/uL (150-450); RED BLOOD COUNT 3.51 10^6/uL (4.35-5.55); WHITE BLOOD COUNT 10.7 10^3/uL (4.0-10.5)
[2020-03-26 08:38] LABS: ABSOLUTE LYMPHOCYTES# (MANUAL) 0.6 10^3/uL (0.5-4.7); ABSOLUTE MONOCYTES # (MANUAL) 0.3 10^3/uL (0.1-1.4); BASOPHILS % (MANUAL) 0 % (0-2); EOSINOPHILS % (MANUAL) 1 % (0-6); LYMPHOCYTES % (MANUAL) 6 % (13-45); MONOCYTES % (MANUAL) 3 % (3-13); SEGMENTED NEUTROPHILS % (MAN) 90 % (42-78); TOTAL CELLS COUNTED 100
[2020-03-26 08:39] LABS: ANISOCYTOSIS 1+; HYPOCHROMASIA SLIGHT; POLYCHROMASIA SLIGHT
[2020-03-26 08:40] LABS: OVALOCYTES 1+; PLATELET COMMENT ADEQUATE; POIKILOCYTOSIS 1+; TEAR DROP CELLS SLIGHT
[2020-03-26] MEDS: GABAPENTIN 300 MG CAPSULE PO SCH ×3 (09:12→17:44)
[2020-03-26] MEDS: ENOXAPARIN SODIUM INJ 40 MG/0.4 ML DISP.SYRIN SUBCUT SCH (09:12)
[2020-03-26] MEDS: MULTIVITAMIN TABLET PO SCH (09:12)
[2020-03-26] MEDS: SENNOSIDES/DOCUSATE 8.6-50 MG 1 EACH TABLET PO SCH ×2 (09:12→17:11)
[2020-03-26] MEDS: SERTRALINE HCL 50 MG TABLET PO SCH (09:13)
[2020-03-26] MEDS ORDERED: VANCOMYCIN HCL INJ 1000 MG VIAL IV ONE (14:33)
[2020-03-26] MEDS ORDERED: PIPERACILLIN/TAZOBACTAM 3.375 GM VIAL IV ONE (14:33)
[2020-03-26] MEDS: ZOLPIDEM TARTRATE 5 MG TABLET PO SCH (21:30)
[2020-03-27] MEDS: HYDROCODONE/ACETAMINOPHEN 5-325 MG TABLET PO PRN ×4 (02:02→20:57)
[2020-03-27] MEDS: SENNOSIDES/DOCUSATE 8.6-50 MG 1 EACH TABLET PO SCH ×2 (09:32→18:09)
[2020-03-27] MEDS: SERTRALINE HCL 50 MG TABLET PO SCH (09:32)
[2020-03-27] MEDS: MULTIVITAMIN TABLET PO SCH (09:32)
[2020-03-27] MEDS: GABAPENTIN 300 MG CAPSULE PO SCH ×3 (09:32→18:09)
[2020-03-27] MEDS: ENOXAPARIN SODIUM INJ 40 MG/0.4 ML DISP.SYRIN SUBCUT SCH (09:32)
--- NOTE | 2020-03-27 11:16 | ER Document Report ---
Doctor's Note Notes: 03/27/20 11:15 Patient evaluated just now. Patient is sitting on the side of the bed comfortably. He is eating breakfast without problem. He states he has some minor abdominal pain. On exam he has some mild abdominal pain but he definitely does not have surgical abdominal signs. He is receiving wet-to-dry dressings. There is not appear to be any problems with the wound. Patient's vital signs have been stable. I reviewed labs his urine is consistently with white blood cells however due to his urostomy will continue to look like this. We will hold off antibiotics unless patient develops a fever or white blood cell count elevation. We will recheck labs this morning. Patient's heart was regular rate and rhythm. Lungs are clear to auscultation.
[2020-03-27 17:03] LABS: ABSOLUTE EOSINOPHILS # (AUTO) 0.2 10^3/uL (0.0-0.6); ABSOLUTE LYMPHOCYTES (AUTO) 0.9 10^3/uL (0.5-4.7); ABSOLUTE MONOCYTES (AUTO) 0.6 10^3/uL (0.1-1.4); ABSOLUTE NEUT (AUTO) 6.2 10^3/uL (1.7-8.2); BASOPHILS % (AUTO) 0.5 % (0-2); EOSINOPHILS % (AUTO) 2.2 % (0-6); HEMATOCRIT 24.1 % (37.9-51.0); LYMPHOCYTES % (AUTO) 11.9 % (13-45); MEAN CORPUSCULAR HEMOGLOBIN 25.7 pg (27.0-33.4); MEAN CORPUSCULAR VOLUME 78 fl (80-97); PLATELET COUNT 244 10^3/uL (150-450); RED BLOOD COUNT 3.09 10^6/uL (4.35-5.55); RED CELL DISTRIBUTION WIDTH 16.8 % (11.5-14.0); SEGMENTED NEUTROPHILS % (AUTO) 78.4 % (42-78); TOTAL CELLS COUNTED % (AUTO) 100 %; WHITE BLOOD COUNT 7.9 10^3/uL (4.0-10.5)
[2020-03-27 17:07] LABS: HEMOGLOBIN 7.9 g/dL (13.5-17.0)
[2020-03-27 17:21] LABS: ANION GAP 8 (5-19); BLOOD UREA NITROGEN 13 mg/dL (7-20); CALCIUM 8.3 mg/dL (8.4-10.2); CARBON DIOXIDE 25 mmol/L (22-30); CHLORIDE 104 mmol/L (98-107); GLUCOSE 116 mg/dL (75-110); POTASSIUM 3.3 mmol/L (3.6-5.0)
[2020-03-27] MEDS: FERROUS SULFATE 325 MG TABLET PO SCH (19:07)
--- NOTE | 2020-03-27 19:34 | ER Document Report ---
Doctor's Note Notes: 03/27/20 19:33 Patient's hemoglobin returns at 7.9. Yesterday was 9.2 however the day before that it was 7.9. It seems that this is not an new acutely low hemoglobin for the patient but within the range of lab error and hydration status. He does not have any acute sites of bleeding. I think the most prudent thing is to recheck the CBC in the morning as patient has normal heart rate and normal blood pressure and is nontoxic at this time. And as stated above he has no obvious sites of acute bleeding.
[2020-03-27] MEDS: ZOLPIDEM TARTRATE 5 MG TABLET PO SCH (22:30)
[2020-03-28] MEDS: ZOLPIDEM TARTRATE 5 MG TABLET PO SCH (01:44)
[2020-03-28] MEDS: HYDROCODONE/ACETAMINOPHEN 5-325 MG TABLET PO PRN ×2 (03:59→09:52)
[2020-03-28 04:59] LABS: APPEARANCE,URINE SLIGHTLY-CLOUDY; BILIRUBIN,URINE NEGATIVE (NEGATIVE); COLOR,URINE YELLOW; GLUCOSE, URINE NEGATIVE (NEGATIVE); KETONES,URINE NEGATIVE (NEGATIVE); LEUKOCYTE ESTERASE,URINE LARGE (NEGATIVE); NITRITE,URINE NEGATIVE (NEGATIVE); PROTEIN,URINE 100 mg/dL (NEGATIVE); URINE SPECIFIC GRAVITY 1.011; UROBILINOGEN,URINE NEGATIVE mg/dL (<2.0)
[2020-03-28 08:24] LABS: HEMATOCRIT 25.7 % (37.9-51.0); HEMOGLOBIN 8.6 g/dL (13.5-17.0); MEAN CORPUSCULAR HEMOGLOBIN 25.5 pg (27.0-33.4); MEAN CORPUSCULAR HGB CONC 33.4 g/dL (32.0-36.0); MEAN CORPUSCULAR VOLUME 76 fl (80-97); PLATELET COUNT 252 10^3/uL (150-450); RED BLOOD COUNT 3.37 10^6/uL (4.35-5.55); RED CELL DISTRIBUTION WIDTH 16.9 % (11.5-14.0); WHITE BLOOD COUNT 7.3 10^3/uL (4.0-10.5)
[2020-03-28] MEDS: FERROUS SULFATE 325 MG TABLET PO SCH (09:49)
[2020-03-28] MEDS: SENNOSIDES/DOCUSATE 8.6-50 MG 1 EACH TABLET PO SCH (09:49)
[2020-03-28] MEDS: SERTRALINE HCL 50 MG TABLET PO SCH (09:50)
[2020-03-28] MEDS: MULTIVITAMIN TABLET PO SCH (09:50)
[2020-03-28] MEDS: ENOXAPARIN SODIUM INJ 40 MG/0.4 ML DISP.SYRIN SUBCUT SCH (09:51)
[2020-03-28] MEDS: GABAPENTIN 300 MG CAPSULE PO SCH (09:59)
--- NOTE | 2020-03-28 10:20 | ER Document Report ---
Doctor's Note Notes: 03/28/20 10:19 Patient is resting comfortably this morning. He denies any problems with his abdominal wound at this time. It appears clean and dry on exam. Abdomen is minimally tender but as one would expect post surgically. Heart is regular rate and rhythm. Lungs are clear to auscultation. Skin is warm and dry. He denies any problems. He did eat a minimal breakfast this morning and is currently watching football on TV. We will recheck his CBC today as yesterday it appeared to be on the low side however possibly at his baseline. There is no obvious site of active bleeding.
[2020-03-28 14:11] VITALS: BP 148/84
== END 2020-03-28 14:39 | disposition other institution (70) ==
LOC: ER 16:29
DX: N99.89 Other postprocedural complications and disorders of genitourinary system (principal); R39.198 Other difficulties with micturition; R10.30 Lower abdominal pain, unspecified; R11.0 Nausea; G89.18 Other acute postprocedural pain; R53.1 Weakness; Z93.6 Other artificial openings of urinary tract status; Z85.51 Personal history of malignant neoplasm of bladder; Z87.891 Personal history of nicotine dependence
CPT/HCPCS: 99285; 96372 ×5; 96365; 96366; 96368; 36415; 87040; 87086; 85025; 85027; 87088; 80048; 80053; 81001; 87186; 74018; A9270 ×32; J1650 ×5; J3370; J2543; S0119